=== PATIENT | male | born 1955 | race Caucasian/White ===

== ENCOUNTER 2018-02-24 10:52 | Inpatient (IN) ==
[2018-02-24 11:27] LABS: Basophils # 0.1 K/mm3 (0-0.2); Basophils % 0.4 % (0.1-2.0); Eosinophils # 0.2 K/mm3 (0.0-0.4); Eosinophils % 0.8 % (0.1-12.0); Hemoglobin 16.8 g/dL (14.1-18.0); Lymphocytes # 3.4 K/mm3 (0.7-4.5); Lymphocytes % 18.8 K/mm3 (10-50); Mean Corpuscular HGB Conc 32.9 g/dL (31.8-35.4); Mean Corpuscular Hemoglobin 30.7 pg (27.0-31.2); Mean Corpuscular Volume 93.4 fl (80-94); Mean Platelet Volume 8.3 fl (7.4-10.4); Monocytes # 1.5 K/mm3 (0.1-1.0); Monocytes % 8.3 % (1.7-9.3); Neutrophils # 12.8 K/mm3 (1.8-7.8); Neutrophils % 71.6 % (37.0-80.0); Platelet Count 327 K/mm3 (142-424); Red Blood Count 5.46 M/mm3 (4.60-6.20); Red Cell Distribution Width 13.1 % (11.5-17.5); White Blood Count 17.8 K/mm3 (4.8-10.8)
[2018-02-24 11:35] LABS: Albumin Level 3.5 gm/dL (3.4-5.0); Albumin/Globulin Ratio 0.9 (1.1-1.8); Anion Gap 14.4 mEq/L (5-15); Bilirubin,Total 0.6 mg/dL (0.2-1.0); Calcium 9.4 mg/dL (8.5-10.1); Globulin 4.1 gm/dl (1.3-3.2); Potassium 4.4 mmoL/L (3.5-5.1); Total Protein,Serum 7.6 gm/dL (6.4-8.2)
--- NOTE | 2018-02-24 12:12 | Emergency Department Note ---
ED Disposition Clinical Impression: Hypoxia RLL pneumonia Qualifiers: Pneumonia type: due to unspecified organism Qualified Code(s): J18.1 - Lobar pneumonia, unspecified organism Disposition: Admitted As Inpatient Condition on Discharge: Good Time of Disposition: 12:11 - Critical Care Critical Care Time: No Attestation: On 02/24/18, the high probability of a clinically significant, sudden or life threatening deterioration of the following system(s) required my full and direct attention, intervention and personal management. The time I documented below is in addition to time spent performing reported procedures but includes the following listed in this critical care notation. Medical Decision Making - Medical Records Medical records reviewed: Yes: I reviewed the patient's medical records. - Neo Inquiry Pt receiving controlled substance: No Vital Signs: 02/24/18 11:05 Temperature 97.8 F Temperature Source Oral Pulse Rate [Right Brachial] 81 Respiratory Rate 18 Blood Pressure [Right Arm] 117/84 Blood Pressure Mean [Right Arm] 95 Blood Pressure Source [Right Arm] Automatic Cuff Blood Pressure Position [Right Arm] Sitting 02 Sat by Pulse Oximetry 94 L Oxygen Delivery Method Room Air - Lab Data Lab results reviewed: Yes: I reviewed the patient's lab results. Lab Results 02/24/18 11:15: WBC 17.8 H, RBC 5.46, Hgb 16.8, Hct 51.0, MCV 93.4, MCH 30.7, MCHC 32.9, RDW 13.1, Plt Count 327, MPV 8.3, Neut % (Auto) 71.6, Lymph % (Auto) 18.8, [place] % (Auto) 8.3, Eos % (Auto) 0.8, Baso % (Auto) 0.4, Neut # (Auto) 12.8 H, Lymph # (Auto) 3.4, [place] # (Auto) 1.5 H, Eos # (Auto) 0.2, Baso # (Auto ) 0.1, Total Counted 100, Neutrophils % (Manual) 73, Lymphocytes % (Manual) 21, Monocytes % (Manual) 6, Platelet Estimate Normal, RBC Morphology Normal 02/24/18 11:15: Sodium 139, Potassium 4.4, Chloride 103, Carbon Dioxide 26, Anion Gap 14.4, BUN 15, Creatinine 0.81, Estimated Creat Clear 61, Estimated GFR 97, Est GFR ( Amer) 117, Glucose 95, Calcium 9.4, Total Bilirubin 0.6 , AST 24, ALT 55, Alkaline Phosphatase 101, Total Protein 7.6, Albumin 3.5, Globulin 4.1 H, Albumin/Globulin Ratio 0.9 L 02/24/18 12:20: Lactic Acid 0.8 Result diagrams: 02/24/18 11:15 02/24/18 11:15 Orders (Tests/Meds): ED MEDICATIONS Generic Name Dose Route Start Last Admin Trade Name Ajq PRN Reason Stop Dose Admin Albuterol/Ipratropium 3 ml 02/24/18 14:16 02/24/18 15:20 Duoneb 3ml Neb IH 03/26/18 14:15 Not Given Q4H VIANNEY Benzonatate 100 mg 02/24/18 14:16 Tessalon Perles 100mg Capsule PO 03/26/18 14:15 TID PRN cough Ceftriaxone Sodium 1 gm/ 50 mls @ 100 mls/hr 02/25/18 09:00 Sodium Chloride IV 03/11/18 08:59 Q24H VIANNEY Protocol Lactated Ringer's 1,000 mls @ 75 mls/hr 02/24/18 14:16 02/24/18 15:19 Lactated Ringer's 1000 Ml Bag IV 03/26/18 14:15 75 mls/hr .[id number] VIANNEY Administration Azithromycin 500 mg/ Sodium 250 mls @ 250 mls/hr 02/25/18 13:00 Chloride IV 03/10/18 12:59 Q24H VIANNEY Protocol Discontinued Medications Generic Name Dose Route Start Last Admin Trade Name Mel PRN Reason Stop Dose Admin Azithromycin 500 mg/ Sodium 250 mls @ 250 mls/hr 02/24/18 12:15 02/24/18 15: 20 Chloride IV 03/10/18 12:14 Not Given Q24H VIANNEY Protocol Ceftriaxone Sodium 1 gm/ 50 mls @ 100 mls/hr 02/24/18 12:15 02/24/18 13:31 Sodium Chloride IV 03/10/18 12:14 100 mls/hr Q24H VIANNEY Administration Protocol ORDERS Category Date Time Status Blood Culture Stat Micro 02/24/18 12:20 Received - Radiology Data #1 Image(s): Chest Image Reviewed: Yes I reviewed the patient's radiology results, Yes I reviewed the patient's radiology image, Yes I have reviewed radiologist's interpretation [address] [place] [id number] XRay Report Signed Patient: Jean Marie Perez MR#: [id number] : 1955 Acct:[id number] Age/Sex: 62 / M ADM Date: 02/24/18 Loc: ER Attending Dr: Ordering Physician: Doc Azar MD Date of Service: 02/24/18 Procedure(s): XR chest portable Accession Number(s): [id number] cc: Jose Antonio Melgar ; Doe Smith MD~ XR chest portable Ordering Physician: Doc Azar MD Patient Age: 62 years: Male HISTORY: ITS.REASON: CONGESTIONweakness. Headache. TECHNIQUE: AP upright chest 03-12 COMPARISON :PA and lateral chest from 11/04/2017 FINDINGS . The lungs are, hyperexpanded. Reflect underlying COPD Right lung appears clear. Left lung is suspect developing infiltrate at left lower lobe. Increased markings and density retrocardiac region medial left lung base The heart is normal in size. The althea and mediastinal structures appear satisfactory. No pleural effusion. No pneumothorax IMPRESSION======= 1. left lower lobe pneumonia suspect. Clinical correlation. \\ 2.COPD. Chronic changes Dictated By: Jose Antonio Melgar Signed By: <Electronically signed by Jose Antonio Melgar in OV> 02/24/18 1203 DD/ 1200 - CT Data CT Scan: Head (wo dye) Time Received: 12:[address] Reviewed: Yes: I have reviewed the patient's CT results, I discussed the CT results w/the radiologist, I have viewed the radiologist's interpretation Findings Narrative: [address] [place] [id number] Scan Report Signed Patient: Jean Marie Perez MR#: [id number] : 1955 Acct:[id number] Age/Sex: 62 / M ADM Date: 02/24/18 Loc: ER Attending Dr: Ordering Physician: Doc Azar MD Date of Service: 02/24/18 Procedure(s): CT head/brain wo con Accession Number(s): [id number] cc: Jose Antonio Melgar ; Doe Smith MD~ CT head/brain wo con Ordering Physician: Doc Azar MD Patient Age: 62 years: Male HISTORY: ITS.REASON: headache,weakness TECHNIQUE: Routine axial CT head. Bone and brain windows performed and reviewed COMPARISON : No previous studies for comparison FINDINGS . No hemorrhage. No mass. No subdural collection. The ventricles and basal cisterns appear satisfactory. No extra-axial nor subdural collection The skull is intact. Mild diffuse mucosal thickening ethmoid air cells and sphenoid sinus noted. Top of maxillary sinuses clear. Frontal sinuses overall clear with only borderline mucosal thickening near junction with ethmoid air cells At the mastoid air cells, middle air and IACs unremarkable. IMPRESSION: No acute intracranial findings. Brain within normal limits Dictated By: Jose Antonio Melgar Signed By: <Electronically signed by Jose Antonio Melgar in OV> 02/24/18 1159 DD/ 1156 - Physician Consults Physician Consulted: Dr Smith Time: 13:30 Reason -: Admission, Pt condition Comment/Response: Dr. Smith advise of patient's presentation findings, agreeable with hospitalization, aware of the fact the patient is hypoxic, and in distress at this time. Dr. Smith recommended IV antibiotics and to continue the neb treatments. General Adult HPI - General Chief complaint: Upper Respiratory Infection Stated complaint: weak nausea Time Seen by Provider: 02/24/18 11:25 Mode of Arrival: Ambulatory Source of Information: Patient, Spouse Limitations: No Limitations Description of Symptoms (Recalled from ER Triage Doc. by RN): cough,congestion for 3 weeks; feels poorly; afebrile - History of Present Illness HPI narrative: Patient presents with shortness of breath, productive cough, subjective fever for the past 3 weeks, worse. He has seen Dr. Smith in the office last Saturday he was started on "3 medications" (pt does not recall names). Upon arrival to the emergency room the patient's pulse oximetry is only 83% on room air, and he is in obvious respiratory distress, with audible wheezing. Recent travel, denies recent exposure to sick contacts. He is a heavy smoker, with know history of COPD. MD complaint: DYSPNEA Onset (ago): week(s) (3) Location: chest Radiation: non-radiation Severity: moderate Severity scale (1-10): 8 Consistency: constant Relieving factors: none Exacerbating factors: movement Associated symptoms: cough, diaphoresis, fever/chills, loss of appetite, malaise Treatments prior to arrival: none - Related Data Home Medications Medication Instructions Recorded Confirmed No Known Home Medications [No 02/24/18 02/24/18 Known Home Medications] Allergies Allergy/AdvReac Type Severity Reaction Status Date / Time No Known Allergies Allergy Verified 02/18/18 09:25 [facility] History I have reviewed the patient's past medical history: Yes Medical History: Reports:: Anxiety Other Surgeries: Yes: No Previous Surgery Amputation: No Fractures: Yes Comment: fx rt foot fx jaw, - Social History Educational Level: Completed High School Smoking Status: Never smoker Tobacco Type: cigarettes # Packs/Day (cigarettes): 20 Alcohol Intake: never Substance Use Type: marijuana Occupational Status: employed Housing: house Household Members: children - Psychiatric History Expresses thoughts of harming self/others: None Suicide Plan Description: No Plan Pschychiatric History:: Reports:: Anxiety Family Hx:: Unable to obtain ROS Obtained: Yes All systems reviewed & no additional complaints, Yes Systems reviewed as appropriate & no additional complaints - Constitutional Constitutional: Reports chills, Reports fatigue, Reports fever(s) - Respiratory Respiratory: Yes system reviewed and no additional complaints, except as docu, Yes as per HPI, Yes change in phlegm color, Yes chest congestion, Yes cough Physical Exam - General General appearance: alert, in distress (MODERATE) - Head Head exam: atraumatic, normocephalic, normal inspection - Neck Neck exam: Present: normal inspection, full ROM, trachea midline. Absent: meningismus, lymphadenopathy - Chest Chest inspection: Present: normal inspection, symmetric chest wall rise. Absent : tenderness - Respiratory Respiratory exam: Present: respiratory distress (MILD), wheezes (END EXPIRATORY) - Cardiovascular Cardiovascular exam: Present: regular rate, normal rhythm. Absent: JVD - Abdominal Exam Abdominal exam: Present: soft, normal bowel sounds. Absent: distention, tenderness, guarding - Extremities Exam Extremities exam: Present: normal inspection, full ROM, normal capillary refill. Absent: calf tenderness - Back Exam Back exam: Present: normal inspection. Absent: tenderness - Neurological Exam Neurological exam: Present: alert, oriented X3, CN II-XII intact, motor sensory deficit, reflexes normal - Expanded Neurological Exam Patient oriented to: Present: person, place, time Speech: Present: fluid speech Cranial nerves: Normal: EOM function (II, III, IV, ), facial sensation (V), facial palsy (VII), gag reflex (IX), spinal accessory function (XI), tongue deviation (XII) Cerebellar function: Normal: finger to nose, heel to coe Motor strength - LUE: 5/5 Motor strength - RUE: 5/5 Motor strength - LLE: 5/5 Motor strength - RLE: 5/5 Upper motor neuron exam: Absent bilaterally: jennifer neglect, pronator drift, Babinski sign, sensory extinction Sensory exam upper extremity: Normal: light touch, pin prick, temperature, 2 point discrimination Sensory exam lower extremity: Normal: light touch, pin prick, temperature, 2 point discrimination Coma scale eye opening: Spontaneous Coma scale motor response: Obeys commands Coma scale verbal response: Oriented Coma scale total: 15 - Psychiatric Psychiatric exam: Present: normal affect, normal mood - Skin Skin exam: Present: warm, dry, intact, normal color
[2018-02-24 12:26] LABS: Lymphocytes % 21 % (10-50); Monocytes % 6 % (2-9); Neutrophils % 73 % (42-76); RBC Morphology Normal; Total Cells Counted 100
--- NOTE | 2018-02-24 19:11 | History & Physical Report ---
*Admission Date: 02/24/18 *Chief complaint: sob *History of present illness: this wm who has copd was seen in pcp with sob and cough and places on abx and steroids and antitussive- he reports becoming progressive sob and dec po intake and was seen in the ed -atient presents with shortness of breath, productive cough, subjective fever for the past 3 weeks, worse. He has seen Dr. Smith in the office last Saturday he was started on "3 medications" (pt does not recall names). Upon arrival to the emergency room the patient's pulse oximetry is only 83% on room air, and he is in obvious respiratory distress, with audible wheezing. Recent travel, denies recent exposure to sick contacts. He is a heavy smoker, with know history of COPd [facility] History I have reviewed the patient's past medical history: Yes Medical History: Reports:: Anxiety Denies:: Cancer, Diabetes Mellitus Type 1, Diabetes Mellitus Type 2, Internal Pacemaker, MRSA Laterality Cases: Right: Other Other Surgeries: Yes: No Previous Surgery. No: Pacemaker Amputation: No Fractures: Yes - *Social History Educational Level: Completed High School Smoking Status: Never smoker Tobacco Type: cigarettes # Packs/Day (cigarettes): 20 Alcohol Intake: never Substance Use Type: marijuana Occupational Status: employed Housing: house Household Members: children - Psychiatric History Expresses thoughts of harming self/others: None Suicide Plan Description: No Plan Pschychiatric History:: Reports:: Anxiety *Family Hx:: Unable to obtain Review of Systems - Review of Systems Review of systems:: pertinent systems reviewed and negative unless documented below - Constitutional Denies fever(s) - Eyes Denies change in vision - ENT Denies sore throat - *Cardiovascular Denies chest pain at rest - *Respiratory Reports chest congestion, Reports cough, Denies coughing up blood - *Gastrointestinal Denies abdominal pain, Denies nausea, Denies vomiting - *Musculoskeletal Denies joint pain, Denies joint swelling - Integumentary/Breasts Denies rash - *Neurologic Denies dizziness, Denies seizure-like activity - Psychiatric Denies anxiety Meds Home Medications Medication Instructions Recorded Confirmed Type No Known Home Medications [No 02/24/18 02/24/18 History Known Home Medications] Allergies Allergy/AdvReac Type Severity Reaction Status Date / Time No Known Allergies Allergy Verified 02/18/18 09:25 Exam Vital signs and Labs for Last 24 Hours: Temp Pulse Resp BP Pulse Ox 98.1 F 94 H 20 132/76 97 02/24/18 14:54 02/24/18 16:57 02/24/18 15:54 02/24/18 15:54 02/24/18 16:57 I & O for Last 24 hours: Intake & Output 02/22/18 02/23/18 02/24/18 02/25/18 11:59 11:59 11:59 11:59 Intake Total 720 / 720 Balance 720 / 720 - Constitutional no acute distress - *Routine HEENT Exam Head: Present: normocephalic Eye: Present: EOMI, PERRL ENT: Present: mucous membranes dry - *Routine Neck Exam Present: full ROM. Absent: JVD - *Routine Respiratory Exam Present: rhonchi. Absent: respiratory distress - *Routine Cardiovascular Exam Present: RRR, murmur. Absent: rubs, S3, S4 - *Routine Abdominal Exam Present: soft - *Routine Extremities Exam Present: full ROM. Absent: calf tenderness - *Routine Skin Exam Present: intact - *Routine Neurological Exam Present: alert, oriented X3, CN II-XII intact - Routine Psychiatric Exam Present: normal affect Assessment and Plan (1) CAP (community acquired pneumonia) Current visit: Yes Status: Acute Qualifiers: Laterality: left Lung location: lower lobe of lung Qualified Code(s): J18.1 - Lobar pneumonia, unspecified organism Category: Medical Code(s): J18.9 - Pneumonia, unspecified organism (2) COPD exacerbation Current visit: Yes Status: Acute Category: Medical Code(s): J44.1 - Chronic obstructive pulmonary disease with (acute) exacerbation (3) Tobacco use disorder Current visit: Yes Status: Acute Category: Medical Code(s): F17.200 - Nicotine dependence, unspecified, uncomplicated
[2018-02-24 21:08] LABS: Coronavirus 229E Not Detected (NotDetected); Coronavirus NL63 Not Detected (NotDetected); Coronavirus OC43 Not Detected (NotDetected); Coronovirus HKU1,PCR Not Detected (NotDetected)
[2018-02-25 06:19] LABS: Basophils % 0.1 % (0.1-2.0); Eosinophils % 0.3 % (0.1-12.0); Hematocrit 47.6 % (42.0-52.0); Hemoglobin 15.3 g/dL (14.1-18.0); Lymphocytes % 10.1 K/mm3 (10-50); Mean Corpuscular HGB Conc 32.1 g/dL (31.8-35.4); Mean Corpuscular Hemoglobin 30.7 pg (27.0-31.2); Mean Corpuscular Volume 95.6 fl (80-94); Mean Platelet Volume 7.8 fl (7.4-10.4); Monocytes # 0.2 K/mm3 (0.1-1.0); Monocytes % 2.1 % (1.7-9.3); Neutrophils # 8.8 K/mm3 (1.8-7.8); Neutrophils % 87.3 % (37.0-80.0); Platelet Count 320 K/mm3 (142-424); Red Blood Count 4.98 M/mm3 (4.60-6.20); Red Cell Distribution Width 13.2 % (11.5-17.5); White Blood Count 10.1 K/mm3 (4.8-10.8)
[2018-02-25 07:05] LABS: Anion Gap 15.1 mEq/L (5-15); Potassium 5.1 mmoL/L (3.5-5.1)
--- NOTE | 2018-02-25 08:15 | Pharmacy Consult Notes ---
[facility] Pharmacy VTE Monitoring - Patient Demographics Admission date: 02/24/18 Report Date: 02/25/18 Time: 08:14 Allergies/Adverse Reactions: Patient Allergies No Known Allergies Allergy (Verified 02/18/18 09:25) Height: 1.85 m Weight: 66.706 kg Patient Problems: Current Active Problems RLL pneumonia (Acute) Hypoxia (Acute) CAP (community acquired pneumonia) (Acute) COPD (chronic obstructive pulmonary disease) (Acute) COPD exacerbation (Acute) Tobacco use disorder (Acute) - VTE Risk Labs: VTE Related Lab Results Hgb 15.3 g/dL (14.1-18.0) 02/25/18 06:10 Hct 47.6 % (42.0-52.0) 02/25/18 06:10 Plt Count 320 K/mm3 (142-424) 02/25/18 06:10 BUN 12 mg/dL (7-18) 02/25/18 06:10 Creatinine 0.77 mg/dL (0.70-1.30) 02/25/18 06:10 Estimated Creat Clear 72 mL/min (0-300) 02/25/18 06:10 Was VTE Risk Assessment Performed: Yes VTE Score: 2 VTE Risk Level: Very Low Risk - Prophylaxis VTE Prophylaxis Ordered?: Yes Types of VTE Prophylaxis: TEDS Knee High Location of Applied Device: Bilateral Lower Extremeties - VTE Diagnosis Confirmed Treatment or plan recommended: Continue Current Treatment
--- NOTE | 2018-02-25 12:32 | Discharge Summary ---
General - General Admission date: 02/24/18 Discharge date: 02/25/18 HPI HPI: this wm who has copd was seen in pcp with sob and cough and places on abx and steroids and antitussive- he reports becoming progressive sob and dec po intake and was seen in the ed -atient presents with shortness of breath, productive cough, subjective fever for the past 3 weeks, worse. He has seen Dr. Smith in the office last Estef[place] he was started on "3 medications" (pt does not recall names). Upon arrival to the emergency room the patient's pulse oximetry is only 83% on room air, and he is in obvious respiratory distress, with audible wheezing. Recent travel, denies recent exposure to sick contacts. He is a heavy smoker, with know history of COPd Hospital Course Hospital Course: pt has did well with ivf and abx with steroids and resp treatments - he is off o2 and simon room air - pt has flu b on resp panel and labs were improved Objective Vital signs: Temp Pulse Resp BP Pulse Ox 97.5 F L 74 20 101/58 96 02/25/18 11:45 02/25/18 11:45 02/25/18 11:45 02/25/18 11:45 02/25/18 11:45 no acute distress - *Routine HEENT Exam Head: Present: normocephalic Eye: Present: EOMI, PERRL ENT: Present: mucous membranes dry - *Routine Neck Exam Absent: JVD - *Routine Respiratory Exam Present: CTA bilaterally - *Routine Cardiovascular Exam Present: RRR. Absent: murmur, gallop, rubs - *Routine Abdominal Exam Present: soft - *Routine Extremities Exam Absent: calf tenderness - *Routine Skin Exam Present: lesions Comments: chronic lt scapular lesion - *Routine Neurological Exam Present: alert, oriented X3, CN II-XII intact - Routine Psychiatric Exam Present: normal affect Results Labs on day of discharge: Labs from last 24 hours 02/25/18 02/25/18 02/24/18 06:10 06:10 20:45 WBC 10.1 D RBC 4.98 Hgb 15.3 Hct 47.6 MCV 95.6 H MCH 30.7 MCHC 32.1 RDW 13.2 Plt Count 320 MPV 7.8 Neut % (Auto) 87.3 H Lymph % (Auto) 10.1 [facility] % (Auto) 2.1 Eos % (Auto) 0.3 Baso % (Auto) 0.1 Neut # (Auto) 8.8 H Lymph # (Auto) 1.0 [facility] # (Auto) 0.2 Eos # (Auto) 0.0 Baso # (Auto) 0.0 Sodium 141 Potassium 5.1 Chloride 104 Carbon Dioxide 27 Anion Gap 15.1 H BUN 12 Creatinine 0.77 Estimated Creat Clear 72 Estimated GFR 102 Est GFR ( Amer) 124 Glucose 162 H D Troponin I Chlamy pneumoniae PCR Not detected Adenovirus (PCR) Not detected B.parapertussis DNA PCR Not detected Coronavirus OC43 (PCR) Not detected Coronavirus HKU1 (PCR) Not detected Coronavirus 229E (PCR) Not detected Coronavirus NL63 (PCR) Not detected Human Metapneumovir PCR Not detected Influenza A (H1) PCR Not detected Influ A (H1N1/) PCR Not detected Influenza A (H3) PCR Not detected Influenza Type A (PCR) Not detected Influenza Type B (PCR) Detected A M. pneumoniae (PCR) Not detected Parainfluenza 1 (PCR) Not detected Parainfluenza 2 (PCR) Not detected Parainfluenza 3 (PCR) Not detected Parainfluenza 4 (PCR) Not detected RSV (PCR) Not detected Entero/Rhino (PCR) Not detected 02/24/18 19:21 WBC RBC Hgb Hct MCV MCH MCHC RDW Plt Count MPV Neut % (Auto) Lymph % (Auto) [facility] % (Auto) Eos % (Auto) Baso % (Auto) Neut # (Auto) Lymph # (Auto) [facility] # (Auto) Eos # (Auto) Baso # (Auto) Sodium Potassium Chloride Carbon Dioxide Anion Gap BUN Creatinine Estimated Creat Clear Estimated GFR Est GFR ( Amer) Glucose Troponin I < 0.02 Chlamy pneumoniae PCR Adenovirus (PCR) B.parapertussis DNA PCR Coronavirus OC43 (PCR) Coronavirus HKU1 (PCR) Coronavirus 229E (PCR) Coronavirus NL63 (PCR) Human Metapneumovir PCR Influenza A (H1) PCR Influ A (H1N1/) PCR Influenza A (H3) PCR Influenza Type A (PCR) Influenza Type B (PCR) M. pneumoniae (PCR) Parainfluenza 1 (PCR) Parainfluenza 2 (PCR) Parainfluenza 3 (PCR) Parainfluenza 4 (PCR) RSV (PCR) Entero/Rhino (PCR) Preliminary micro results at discharge 02/24/18 20:46 Sputum Culture - Preliminary Sputum - Expectorated Sputum DS: Diagnosis - Discharge Diagnosis (1) CAP (community acquired pneumonia) Status: Acute (2) COPD exacerbation Status: Acute (3) Tobacco use disorder Status: Acute (4) Flu Status: Acute (5) Skin lesion Status: Acute (6) Low body mass index (BMI) Status: Acute Discharge Plan - Patient Discharge Instructions ACTIVITY: Continue current activity DIET: continue same diet - Follow up Plan Disposition: Home, Self-Mcc Medications: Home Medications Medication Instructions Recorded Confirmed Type Benzonatate [Benzonatate 100mg 100 mg PO TIDP PRN 02/25/18 02/25/18 History cap] cephALEXin [Cephalexin 500mg Tab] 500 mg PO TID 02/25/18 02/25/18 History predniSONE [Prednisone 20mg 20 mg PO BID 02/25/18 02/25/18 History Tab] Prescriptions/Medication Reconciliation: New Benzonatate [Benzonatate 100mg cap] 100 mg PO TID PRN capsule PRN Reason: cough Ipratropium/Albuterol Sulfate [Duoneb 3mL neb] 3 ml IH Q4H ampul.neb Azithromycin [Zithromax 250mg tab] 250 mg PO DIRECTED #6 tab Oseltamivir Phosphate [Tamiflu 75mg Capsule] 75 mg PO BID #10 cap Continue Benzonatate [Benzonatate 100mg cap] 100 mg PO TIDP PRN PRN Reason: Cough predniSONE [Prednisone 20mg Tab] 20 mg PO BID Discontinued cephALEXin [Cephalexin 500mg Tab] 500 mg PO TID
[2018-02-25 14:15] LABS: Lymphocytes % 8 % (10-50); Monocytes % 2 % (2-9); Neutrophils % 90 % (42-76); Total Cells Counted 100
--- NOTE | 2018-02-25 20:06 | Cardiology Report ---
PROCEDURE: 2-D M-mode and color Doppler study INDICATIONS FOR THE TEST: Chest pain COPD+ Heart Murmur+ Tobacco Smoking+ Palpitations Fatigue Syncope Edema Hypertension Diabetes Mellitus Rheumatic Fever SOB+CRUM Obesity Hyperlipidemia Family History HD Additional History PATIENT INFORMATION HEIGHT: 73 WEIGHT:147 GENDER: Male B/P:132/76 2-D/M-MODE INTERPRETATION: 2-D MEASUREMENTS OBSERVED VALUES IN CMS Right Ventricular Dimension (RVDd) 2.0 Interventricular Septum (Thickness)(IVsd) 1.1 Left Ventricular Internal Dimensions(LVIDd) 5.1 Left Ventricular Posterior Wall (Thickness)(LVPWd) 0.8 Aortic Root 2.2 Aortic Cusp Separation 4.0 Left Atrial Dimensions (LAD) 4.0 2D 1. Left atrium is mildly enlarged, left ventricle is normal size, visually estimated ejection fraction 50% with no obvious regional wall motion abnormality, there is abnormal septal motion. 2. The right atrium and right ventricle are relatively normal size and function. 3. The aortic valve is minimally thickened and fibrosed. 4. The mitral and tricuspid valvular grossly normal. 5. The pulmonic valve is poorly visualized. 6. No significant pericardial effusion noted. DOPPLER INTERROGATION: Doppler interrogation of the aortic, mitral and tricuspid valvular presence of mild mitral and tricuspid regurgitation, tricuspid and jet velocity insufficient for calculation of the right ventricular systolic pressure, diastolic parameters are inconclusive. CONCLUSION: 1. Mildly enlarged left atrium, normal left ventricular size, visually estimated ejection fraction 5 50% with no obvious regional wall motion abnormality, there is abnormal septal motion. 2. Mild mitral and tricuspid regurgitation 3. No significant pericardial effusion noted.
[2018-02-27 14:57] VITALS: BP 112/70
== END 2018-02-25 13:50 | disposition home or self-care (01) ==
LOC: 2ND 10:52 → ER 10:52 → OBSVTOIN 14:22 → 2ND 14:23
PROVIDERS: ADMIT Emergency Medicine; ATTEND Emergency Medicine

== ENCOUNTER → 2018-04-16 09:39 | Outpatient (CLI) | payer MEDICAID, SELFPAY ==
[2018-04-16 10:28] LABS: Basophils % 0.3 % (0.1-2.0); Eosinophils # 0.1 K/mm3 (0.0-0.4); Eosinophils % 0.5 % (0.1-12.0); Hematocrit 40.8 % (42.0-52.0); Hemoglobin 13.7 g/dL (14.1-18.0); Lymphocytes # 1.9 K/mm3 (0.7-4.5); Lymphocytes % 14.7 K/mm3 (10-50); Mean Corpuscular HGB Conc 33.6 g/dL (31.8-35.4); Mean Corpuscular Volume 92.2 fl (80-94); Mean Platelet Volume 7.6 fl (7.4-10.4); Monocytes # 0.9 K/mm3 (0.1-1.0); Monocytes % 6.9 % (1.7-9.3); Neutrophils # 9.9 K/mm3 (1.8-7.8); Neutrophils % 77.6 % (37.0-80.0); Platelet Count 354 K/mm3 (142-424); Red Blood Count 4.43 M/mm3 (4.60-6.20); Red Cell Distribution Width 13.6 % (11.5-17.5); White Blood Count 12.7 K/mm3 (4.8-10.8)
[2018-04-16 11:40] LABS: Anion Gap 15.9 mEq/L (5-15); Blood Urea Nitrogen 13 mg/dL (7-18); Carbon Dioxide 27 mmol/L (21.0-32.0); Chloride 101 mmol/L (98-107); Creatinine,Serum 0.75 mg/dL (0.70-1.30); Estimated Glomerular Filt Rate 106 ml/min (>60); GFR (African American) 128 ML/MIN (>60); Glucose 87 mg/dL (74-106); Potassium 4.9 mmoL/L (3.5-5.1); Sodium 139 mmol/L (136-145)
== END ==
PROVIDERS: Visit Provider Surgery
DX: Z01.818 Encounter for other preprocedural examination (principal); L98.9 Disorder of the skin and subcutaneous tissue, unspecified
CPT/HCPCS: 36415; 80048; 85025; 93005

== ENCOUNTER → 2018-05-09 09:16 | Outpatient (CLI) | payer MEDICAID, SELFPAY ==
[2018-05-09 09:49] VITALS: PULSE 81; PULSE 83
== END ==
PROVIDERS: Family Provider Emergency Medicine; PCP Emergency Medicine; Visit Provider Emergency Medicine
DX: J44.9 Chronic obstructive pulmonary disease, unspecified (principal)
CPT/HCPCS: 94060; 94640

== ENCOUNTER → 2019-04-14 08:46 | Outpatient (CLI) | payer MEDICAID, SELFPAY ==
--- NOTE | 2019-04-14 08:53 | NVE_ITS ---
Venous Exam Indications: 729.5 Pain in limb. 729.5 Pain in limb. IMPRESSIONS 1. There is no evidence of significant Reflux. 2. No evidence of acute deep or superficial vein thrombosis involving the left lower extremity 3. Cystic nodule noted in the area of concern in the posterior thigh in the subcutaneous tissue. Left lower extremity venous duplex evaluation. Doppler flow study including spectral analysis, color and muñoz scale imaging. Location: Vascular laboratory. Patient status: Outpatient. Tables: Venous flow and imaging: + +-------+ + Location Overall Flow properties + +-------+ + Left common femoral Patent Normal phasicity; spontaneous; normal augmentation; compressible + +-------+ + Left saphenofemoral junction Patent Compressible + +-------+ + Left profunda femoral Patent Compressible + +-------+ + Left femoral Patent Normal phasicity; spontaneous; normal augmentation; compressible + +-------+ + Left greater saphenous Patent Normal phasicity; spontaneous; normal augmentation; compressible + +-------+ + Left popliteal Patent Normal phasicity; spontaneous; normal augmentation; compressible + +-------+ + Left posterior tibial Patent Compressible + +-------+ + Left peroneal Patent Compressible + +-------+ + Left gastrocnemius Patent Compressible + +-------+ + Left soleal Patent Compressible + +-------+ + (Report amended ) Electronically signed by: Sukh Sosa [id number]
== END ==
PROVIDERS: PCP Emergency Medicine; Visit Provider Emergency Medicine
DX: M79.605 Pain in left leg (principal)
CPT/HCPCS: 93971

== ENCOUNTER → 2019-06-10 15:14 | Outpatient (CLI) | payer MEDICAID, SELFPAY ==
--- NOTE | 2019-06-10 15:27 | CT_ITS ---
CT foot RT wo con INDICATION: Evaluate calcaneal fracture, pain following injury, deformity types of calcaneal fracture CT of calcaneal fractures ITS.REASON: Calcaneus fracture ORDERING PHYSICIAN: Yoana Mason MD PATIENT AGE: 64 years COMPARISON: None TECHNIQUE: Contrast Used: Oral Contrast: Axial images were obtained. Sagittal and coronal reformatted images are reviewed as well. All CT scans at the facility use one or more dose reduction, viz: automated exposure control, ma/kV adjustment per patient size (including targeted exams where dose is matched to indication, i.e. head), or iterative reconstruction technique. FINDINGS: There is a severely comminuted burst type fracture of the calcaneus with fractures extending from the posterior to the anterior surface of the calcaneus cephalad to caudad. Fracture lines extend into the subtalar joint and also involve the sustentaculum jazmyne. There is loss of Boehler's angle.. The anterior portion of the fracture does extend into the articular surface at the cuboid. There is extensive soft tissue swelling about the foot. There is an avulsion of the tip of the lateral malleolus nondisplaced IMPRESSION: Severely comminuted intra-articular calcaneal fracture as described above
--- NOTE | 2019-06-10 15:27 | CT_ITS ---
CT shoulder RT wo con HISTORY: Evaluate shoulder fracture, pain following injury, ITS.REASON: shoulder fracture ORDERING PHYSICIAN: Yoana Mason MD PATIENT AGE: 64 years Comparison: 06/10/2019 FINDINGS: Comminuted fracture involves the region of the greater tuberosity with mild displacement of the greater superiorly by approximately 14 mm. The fracture does not extend into the medial aspect of the humeral neck. There is no evidence of glenohumeral dislocation. Hypertrophic changes are present at the acromioclavicular joint. The glenoid fossa and scapula have an unremarkable appearance Incidental note is made of centrilobular emphysematous changes of the right lower lobe with some scarring. IMPRESSION: Comminuted fracture of the humerus at the greater tuberosity region with displacement of the greater tuberosity. The fracture does not appear to involve the humeral neck.
== END ==
PROVIDERS: PCP Emergency Medicine; Visit Provider Orthopaedic Surgery
DX: S42.91XA Fracture of right shoulder girdle, part unspecified, initial encounter for closed fracture (principal); S92.001A Unspecified fracture of right calcaneus, initial encounter for closed fracture
CPT/HCPCS: 73200; 73700

== ENCOUNTER → 2019-06-17 16:32 | Outpatient (CLI) | payer MEDICAID, SELFPAY ==
[2019-06-17 16:58] LABS: Basophils # 0.1 K/mm3 (0-0.2); Basophils % 0.3 % (0.1-2.0); Eosinophils # 0.2 K/mm3 (0.0-0.4); Eosinophils % 1.2 % (0.1-12.0); Hematocrit 42.2 % (42.0-52.0); Hemoglobin 13.3 g/dL (14.1-18.0); Lymphocytes % 11.1 % (10-50); Mean Corpuscular HGB Conc 31.5 g/dL (31.8-35.4); Mean Corpuscular Hemoglobin 29.9 pg (27.0-31.2); Mean Corpuscular Volume 95.1 fl (80-94); Monocytes # 0.9 K/mm3 (0.1-1.0); Monocytes % 4.8 % (1.7-9.3); Neutrophils # 14.8 K/mm3 (1.8-7.8); Neutrophils % 82.6 % (37.0-80.0); Platelet Count 421 K/mm3 (142-424); Red Blood Count 4.43 M/mm3 (4.60-6.20); Red Cell Distribution Width 12.9 % (11.5-17.5); White Blood Count 17.9 K/mm3 (4.8-10.8)
[2019-06-17 17:00] LABS: INR 0.91 (0.9-1.1); Prothrombin Time 9.5 seconds (9.4-11.8)
[2019-06-17 17:05] LABS: MANUAL DIFFERENTIAL MANUAL DIFFERENTIAL (MANUAL DIFF)
[2019-06-17 19:07] LABS: Eosinophils % 1 % (0-3); Lymphocytes % 9 % (10-50); Monocytes % 3 % (2-9); Neutrophils % 87 % (42-76); Total Cells Counted 100
[2019-06-17 19:08] LABS: Hypochromasia 1+; Platelet Estimate Normal
[2019-06-17 19:11] LABS: Alanine Aminotransferase 26 U/L (12-78); Albumin Level 3.5 gm/dL (3.4-5.0); Albumin/Globulin Ratio 1.1 (1.1-1.8); Alkaline Phosphatase 115 U/L (46-116); Anion Gap 15.7 mEq/L (5-15); Aspartate Amino Transferase 17 U/L (15-37); Bilirubin,Total 0.6 mg/dL (0.2-1.0); Blood Urea Nitrogen 13 mg/dL (7-18); Calcium 9.6 mg/dL (8.5-10.1); Carbon Dioxide 28 mmol/L (21.0-32.0); Chloride 100 mmol/L (98-107); Creatinine,Serum 0.81 mg/dL (0.70-1.30); Estimated Glomerular Filt Rate 96 ml/min (>60); GFR (African American) 116 ML/MIN (>60); Globulin 3.2 gm/dl (1.3-3.2); Glucose 150 mg/dL (74-106); Potassium 4.7 mmoL/L (3.5-5.1); Sodium 139 mmol/L (136-145); Total Protein,Serum 6.7 gm/dL (6.4-8.2)
== END ==
PROVIDERS: Visit Provider Orthopaedic Surgery
DX: S42.201A Unspecified fracture of upper end of right humerus, initial encounter for closed fracture (principal); J44.1 Chronic obstructive pulmonary disease with (acute) exacerbation
CPT/HCPCS: 36415; 80053; 85007; 85025; 85610

== ENCOUNTER → 2019-06-22 10:39 | Outpatient (CLI) | payer MEDICAID, SELFPAY ==
--- NOTE | 2019-06-22 10:52 | XR_ITS ---
XR chest 2V HISTORY: ITS.REASON: pre op, cough, smoker ORDERING PHYSICIAN: Yoana Mason MD PATIENT AGE: 64 years COMPARISON: 06/18/2019 FINDINGS: The cardiomediastinal silhouette and pulmonary vascularity are within normal limits. COPD. No lobar consolidation or collapse. There is increased density in the upper lung zones on both sides laterally probably related to overlying soft tissue attenuation. Postsurgical changes of the right humerus. IMPRESSION: COPD, no change with no acute finding
== END ==
PROVIDERS: Visit Provider Orthopaedic Surgery
DX: Z01.818 Encounter for other preprocedural examination (principal); S92.011A Displaced fracture of body of right calcaneus, initial encounter for closed fracture
CPT/HCPCS: 71046; 93005

== ENCOUNTER → 2019-07-01 12:37 | Outpatient (CLI) | payer OTHER, SELFPAY ==
--- NOTE | 2019-07-01 13:06 | XR_ITS ---
XR shoulder RT min 2V HISTORY: Follow-up surgery/ORIF ITS.REASON: S/p shoulder sx ORDERING PHYSICIAN: Yoana Mason MD PATIENT AGE: 64 years Comparison: 06/24/2019 FINDINGS: Lateral bone plate with multiple screws remain in place stabilizing the comminuted fracture at the base of the greater tuberosity with good alignment. Fracture lines are somewhat less apparent. IMPRESSION: Good alignment healing fracture status post ORIF proximal humerus
== END ==
PROVIDERS: PCP Emergency Medicine; Visit Provider Orthopaedic Surgery
DX: Z98.890 Other specified postprocedural states (principal); M25.511 Pain in right shoulder
CPT/HCPCS: 73030

== ENCOUNTER → 2019-07-17 13:38 | Outpatient (CLI) | payer OTHER, SELFPAY ==
--- NOTE | 2019-07-17 13:42 | XR_ITS ---
PROCEDURE: XR SHOULDER RT MIN 2V CLINICAL INDICATION: rt shoulder fx Follow-up fracture COMPARISON: from 07/01/2019 FINDINGS: Status post ORIF proximal humeral fracture with lateral sideplate and multiple screws. There is comminution of the greater tuberosity with some superior displacement of a fracture fragment which appears slightly greater displaced compared to the previous exam. Humeral head is in place. Osteoarthritic changes are present at the acromioclavicular joint. IMPRESSION: Status post ORIF right humeral neck fracture with some increase in superior displacement of a comminuted fragment of the greater tuberosity Dictated by: Sukh Sosa MD 07/17/2019 15:44 Signed by: <Electronically signed by Sukh Sosa MD in [place]> 07/17/2019 15:44
== END ==
PROVIDERS: PCP Emergency Medicine; Visit Provider Orthopaedic Surgery
DX: S42.201A Unspecified fracture of upper end of right humerus, initial encounter for closed fracture (principal)
CPT/HCPCS: 73030

== ENCOUNTER → 2019-07-23 12:49 | Outpatient (CLI) | payer OTHER, SELFPAY ==
--- NOTE | 2019-07-23 12:52 | XR_ITS ---
PROCEDURE: XR FOOT WT BEARING RT 3V CLINICAL INDICATION: post-op Follow-up surgery COMPARISON: Foot R from 06/10/2019 FINDINGS: Posterior splint is in place. Status post ORIF calcaneal fracture with good alignment. There is some loss of Boehler's angle. Status post fixation with a pen through the ununited fracture at the base of the proximal phalanx of the 5th digit with an additional oreilly through the proximal phalanx of the 4th digit. There is a splint in place. IMPRESSION: Postsurgical changes as described above Dictated by: Sukh Sosa MD 07/23/2019 13:32 Signed by: <Electronically signed by Sukh Sosa MD in [place]> 07/23/2019 13:32
--- NOTE | 2019-07-23 12:52 | XR_ITS ---
PROCEDURE: XR CALCANEUS RT MIN 2V CLINICAL INDICATION: post-op Follow-up surgery COMPARISON: No exams were available for comparison FINDINGS: S/p reduction internal fixation with bone plate placed over the lateral aspect of the calcaneus stabilized with multiple screws with an additional longitudinal screw from the posterior aspect of the calcaneus directed anteriorly and 1 from the lateral aspect directed medially. Fracture line extends into the anterior and posterior subtalar joint. There is depression of Boehler's angle. IMPRESSION: Status post ORIF comminuted calcaneal fracture as described above with good alignment Dictated by: Sukh Sosa MD 07/23/2019 13:55 Signed by: <Electronically signed by Sukh Sosa MD in [place]> 07/23/2019 13:55
== END ==
PROVIDERS: PCP Emergency Medicine; Visit Provider Podiatrist
DX: Z98.890 Other specified postprocedural states (principal)
CPT/HCPCS: 73630; 73650

== ENCOUNTER → 2019-08-13 09:13 | Outpatient (CLI) | payer OTHER, SELFPAY ==
--- NOTE | 2019-08-13 09:18 | XR_ITS ---
PROCEDURE: XR FOOT WT BEARING RT 3V CLINICAL INDICATION: post-op The COMPARISON: Foot R from 06/10/2019 XR FOOT WT BEARING RT 3V from 07/23/2019 FINDINGS: Stabilizing pans are once again noted in the mid and proximal phalanx of the 4th and 5th toes as previously described there remains non bony union involving the proximal aspect of the proximal phalanx of the 5th toe. There is mild diffuse osteopenia of the distal aspect of the 5th metatarsal. Prior ORIF of the calcaneus IMPRESSION: No change status post pin placement through the 4th and 5th toes and prior ORIF of the calcaneus. Dictated by: Sukh Sosa MD 08/13/2019 13:41 Electronically signed by Sukh Sosa MD in [place] 08/13/2019 13:41
== END ==
PROVIDERS: PCP Emergency Medicine; Visit Provider Podiatrist
DX: M79.671 Pain in right foot (principal); Z98.890 Other specified postprocedural states
CPT/HCPCS: 73630

== ENCOUNTER → 2019-08-17 13:50 | Outpatient (CLI) | payer OTHER, SELFPAY ==
--- NOTE | 2019-08-17 13:53 | XR_ITS ---
PROCEDURE: XR SHOULDER RT MIN 2V CLINICAL INDICATION: Rt shoulder pain Follow-up fracture COMPARISON: Shoulder R from 06/10/2019 XR SHOULDER RT MIN 2V from 07/17/2019 FINDINGS: Bone plate with multiple screws remains in place along the proximal lateral aspect of the humerus. Bony fragments are present at the greater tuberosity region. There appears to be slight increased fragmentation compared to the previous study. Subcortical lucency is also noted at the humeral head. There are osteoarthritic changes of the acromioclavicular joint. IMPRESSION: Status post ORIF right proximal humeral fracture with some increased fragmentation of the greater tuberosity fragment. Subcortical lucency noted in the humeral head raising the question of avascular necrosis Dictated by: Sukh Sosa MD 08/17/2019 14:20 Electronically signed by Sukh Sosa MD in [place] 08/17/2019 14:20
== END ==
PROVIDERS: PCP Emergency Medicine; Visit Provider Orthopaedic Surgery
DX: M25.511 Pain in right shoulder (principal)
CPT/HCPCS: 73030

== ENCOUNTER → 2019-08-27 14:08 | Outpatient (CLI) | payer OTHER, SELFPAY ==
--- NOTE | 2019-08-27 14:17 | XR_ITS ---
PROCEDURE: XR CALCANEUS RT MIN 2V CLINICAL INDICATION: post-op COMPARISON: 07/23/2019. FINDINGS: Splint device is no longer present. The calcaneal orthopedic metallic hardware appears stable. The appearance of the calcaneal fracture is unchanged. IMPRESSION: Splint device is no longer present. No other change. Dictated by: Jose Antonio Metz 08/27/2019 15:50 Electronically signed by Jose Antonio Metz in [place] 08/27/2019 15:50
--- NOTE | 2019-08-27 14:17 | XR_ITS ---
PROCEDURE: XR ANKLE WT BEARING RT MIN 3V CLINICAL INDICATION: post-op COMPARISON: No exams were available for comparison FINDINGS: The bone density, joint spaces and alignment are normal. There is no acute fracture. Again seen is the metallic orthopedic hardware involving calcaneus described on the calcaneus report. IMPRESSION: No acute findings. Dictated by: Jose Antonio Metz 08/27/2019 15:52 Electronically signed by Jose Antonio Metz in [place] 08/27/2019 15:52
== END ==
PROVIDERS: PCP Emergency Medicine; Visit Provider Podiatrist
DX: S92.011D Displaced fracture of body of right calcaneus, subsequent encounter for fracture with routine healing (principal); S92.501K Displaced unspecified fracture of right lesser toe(s), subsequent encounter for fracture with nonunion; Z98.890 Other specified postprocedural states
CPT/HCPCS: 73610; 73650

== ENCOUNTER → 2019-09-18 12:21 | Outpatient (CLI) | payer OTHER, SELFPAY ==
--- NOTE | 2019-09-18 12:34 | XR_ITS ---
PROCEDURE: XR HUMERUS RT CLINICAL INDICATION: Humerus FX FU Follow-up fracture COMPARISON: XR SHOULDER RT MIN 2V from 08/17/2019 FINDINGS: Status post ORIF proximal humeral fracture. Bone plate remains in place with good alignment. The greater tuberosity fragment is once again noted slightly displaced not significantly changed. No change subcortical lucency humeral head. IMPRESSION: No change status post ORIF proximal humeral fracture Dictated by: Sukh Sosa MD 09/18/2019 13:21 Electronically signed by Sukh Sosa MD in [place] 09/18/2019 13:21
== END ==
PROVIDERS: PCP Emergency Medicine; Visit Provider Orthopaedic Surgery
DX: S42.309A Unspecified fracture of shaft of humerus, unspecified arm, initial encounter for closed fracture (principal)
CPT/HCPCS: 73060

== ENCOUNTER → 2019-10-01 09:49 | Outpatient (CLI) | payer OTHER, SELFPAY ==
--- NOTE | 2019-10-01 09:55 | XR_ITS ---
PROCEDURE: XR CALCANEUS RT MIN 2V CLINICAL INDICATION: postop views Follow-up surgery/ORIF COMPARISON: XR CALCANEUS RT MIN 2V from 08/27/2019 FINDINGS: Status post ORIF comminuted calcaneal fracture with lateral bone plate with multiple screws along with a longitudinal screw extending posterior to anterior as previously described. The fracture lines appear somewhat less apparent suggesting healing. Subtalar joints are unremarkable. Fracture line is still visible in the central aspect of the calcaneus as seen on the PA view. There is some calcification superior to the posterior aspect of the calcaneus and may be related to some soft tissue calcification or small displaced fragment. There is flattening of Boehler's angle as before Other findings:None. IMPRESSION: Healing calcaneal fracture status post ORIF Dictated by: Sukh Sosa MD 10/01/2019 15:35 Electronically signed by Sukh Sosa MD in [place] 10/01/2019 15:35
--- NOTE | 2019-10-01 09:55 | XR_ITS ---
PROCEDURE: XR SHOULDER RT MIN 2V CLINICAL INDICATION: Shoulder pain Follow-up ORIF proximal humerus fracture COMPARISON: Shoulder R from 06/10/2019 XR SHOULDER RT MIN 2V from 07/17/2019 XR SHOULDER RT MIN 2V from 08/17/2019 FINDINGS: Status post ORIF humeral neck fracture with a lateral displaced fragment as before. There is good alignment of the main fracture fragments. Subarticular lucency once again noted at the humeral head and could be related to developing avascular necrosis. This appears slightly more prominent. IMPRESSION: Status post ORIF with good alignment of main fracture fragments with possible developing avascular necrosis of the humeral head Dictated by: Sukh Sosa MD 10/01/2019 15:37 Electronically signed by Sukh Sosa MD in [place] 10/01/2019 15:37
== END ==
PROVIDERS: PCP Emergency Medicine; Referring Provider Podiatrist; Visit Provider Orthopaedic Surgery
DX: M25.512 Pain in left shoulder (principal); Z98.890 Other specified postprocedural states
CPT/HCPCS: 73030; 73650

== ENCOUNTER 2019-10-01 10:00 | Outpatient (RCR) | payer OTHER, SELFPAY ==
--- NOTE | 2019-09-07 09:37 | HMH.PTOPEV ---
PT Outpatient Evaluation Rehab PT Outpatient Evaluation Start: 09/07/19 08:41 Freq: Status: Active Protocol: Document 09/07/19 09:13 SEBASTIANPERLA (Rec: 09/07/19 09:37 KAITLYNNQUANG [id number]) Electronically Signed By Vivek Delgado PT 09/07/19 09:13 Outpatient Therapy Subjective History Subjective History This is the initial Physical Therapy evaluation for Jean Marie Perez. Pt is a 64 y/o male referred to PT s/p R calcaneal and foot ORIF. Pt reports he was [place] and slipped and fell off roof. Pt reports drop of 14 feet. Pt rpeorts he hattered foot and R shoulder. Pt rperots he had 2 screws placed in shoulder and multiple plates and screws in R foot. Pt now reports to PT for ROM and progressive function. Chief Complaint Pain,Stiff,Swelling Symptom Type Ache,Throb,Sharp,Dull,Stabbing Symptoms Relieved By Rest/Positioning Symptoms Aggravated By Standing,Walking Prior Functional Limitations None Current Functional Limitations Standing,Recreation Activity, Walking,Stairs Symptom Description Constant but Variable Level of pain today (0-10) 1 Pain scale - at its best (0-10) 1 Pain scale - at its worst (0-10) 3 Ankle/Foot Eval Gait Observation General Gait Pattern Observation Antalgic Gait Assistive Device Ambulation Assistive Device Axillary Crutches ROM right Ankle/Foot Dorsiflexion w/Knee Extended 0 Active Range Motion (degrees) Ankle/Foot Plantar Flexion Active Range 40 of Motion (degrees) Ankle/Foot Eversion Active Range of 4 Motion (degrees) Ankle/Foot Inversion Active Range of 10 Motion (degrees) Ankle/Foot ROM Limitations Soft Tissue Tightness,Muscle Weakness MMT Ankle Dorsiflexion Strength Grade 3- Fair- Ankle Plantarflexion Strength Grade 3- Fair- Foot Eversion Strength Grade 3- Fair- Foot Inversion Strength Grade 3- Fair- Outpatient Therapy Assessment Impairments Problems/Impairmments Palpation Tenderness,Impaired Range of Motion,Impaired Strength,Impaired Walking, Impaired Standing,Impaired Stair Climbing,Impaired Incline Stepping,Impaired Stepping on Uneven Surface,
== END 2019-10-01 10:05 | disposition home or self-care (01) ==
LOC: PT 10:00
PROVIDERS: Visit Provider Podiatrist
DX: S92.001A Unspecified fracture of right calcaneus, initial encounter for closed fracture (principal); Z98.890 Other specified postprocedural states; S92.501K Displaced unspecified fracture of right lesser toe(s), subsequent encounter for fracture with nonunion
CPT/HCPCS: 97110; 97140; 97163

== ENCOUNTER 2019-10-01 11:00 | Outpatient (RCR) | payer OTHER, SELFPAY ==
--- NOTE | 2019-08-25 13:43 | HMH.OTOPEV ---
OT Inpatient Evaluation Rehab OT Outpatient Eval Start: 08/25/19 13:31 Freq: Status: Active Protocol: Document 08/25/19 13:32 TFRY (Rec: 08/25/19 13:43 TFRY [id number]) Electronically Signed By Yecenia Braun OT 08/25/19 13:32 Outpatient Therapy Subjective History Subjective History Patient seen this date for skilled occupational therapy evaluation. Patient referred to occupational therapy as patient is status post ORIF of right proximal humerus fracture. Patient reports that he fell off a house roof on February 25. He said he fell about 14 feet fracturing the proximal humerus and shattering his heel. Patient reports that he did not go to the ER untill the next day. Chief Complaint Pain,Stiff Symptom Type Ache,Sharp Symptoms Relieved By Rest/Positioning Symptoms Aggravated By Physical Activity Prior Functional Limitations None Current Functional Limitations Reaching,Lifting,Sleeping Symptom Description Activity Dependent Level of pain today (0-10) 0 Pain scale - at its best (0-10) 0 Pain scale - at its worst (0-10) 7 Shoulder/Elbow Eval Shoulder Objective Measurements Palpation Tenderness tenderness shoulder exam standard right Shoulder Palpation Findings Tenderness Shoulder ROM Right Shoulder ROM Limitations Pain Shoulder Abduction Active Range of 55 Motion (degrees) Shoulder Abduction Passive Range of 82 Motion (degrees) Shoulder Flexion Active Range of Motion 70 (degrees) Query Text: Shoulder Flexion Passive Range of Motion 110 (degrees) Shoulder External Rotation Active Range 20 of Motion (degrees) Shoulder External Rotation Passive Range 25 of Motion (degrees) Shoulder Internal Rotation Active Range WFL of Motion (degrees) Shoulder Internal Rotation Passive Range 40 of Motion (degrees) pain with active ROM shoulder exam right standard pain with passive ROM shoulder exam right standard decreased ROM shoulder exam standard right Shoulder MMT Shoulder Abduction Strength Grade 3- Fair- Shoulder Extension Strength Grade 3 Fair Shoulder Flexion Strength Grade 3- Fair- Shoulder Horizontal Abduction Strength 3- Fair- Grade Shoulder Horizontal Adduction Strength 3- Fair-
--- NOTE | 2019-09-24 09:48 | HMH.RHREAS ---
Rehab Reassessment Rehab OP Re-assessment Start: 09/24/19 08:50 Freq: Status: Active Protocol: Document 09/24/19 08:51 TFRY (Rec: 09/24/19 09:48 TFRY [id number]) Electronically Signed By Yecenia Braun OT 09/24/19 08:51 Rehab Re-assessment Subjective Subjective It is at least 65% better. Objective Objective Notes Patient seen this date foer skilled occupational therapy services. Reassessment of right shoulder: AROM: flexion - 0-135; Abduction - 0-105; int. rot - 0-10; ext. rot. - 0-50. PROM: flexion - 0-145; abduction - 0-140; int. rot. - 0-25; ext. rot. - 0-55. Right shoulder strength: flexion - 3+/5; abduction - 3+/5; int. rot. - 3+/5; ext. rot. - 3+/5 Assessment Assessment Notes ROM and strength are improving Patient goals met ROM and strength - STG's Goals Not Met AROM and strength Plan Plan Continue occupational therapy to improve AROM and strength Frequency of Therapy 2x per week Duration of therapy 5 weeks Time and Billing Re-Eval Time 5 Re-Eval Billing Units 0 PHYSICIAN CERTIFICATION: I certify the specified therapy services for Jean Marie Perez are required, authorized, and reviewed every 30 days.
== END 2019-10-01 11:05 | disposition home or self-care (01) ==
LOC: OT 11:00
PROVIDERS: Visit Provider Orthopaedic Surgery
DX: S42.294D Other nondisplaced fracture of upper end of right humerus, subsequent encounter for fracture with routine healing (principal); M79.601 Pain in right arm; M47.812 Spondylosis without myelopathy or radiculopathy, cervical region; R20.2 Paresthesia of skin
CPT/HCPCS: 97014; 97110; 97140; 97164; G0283

== ENCOUNTER → 2019-10-09 09:18 | Outpatient (CLI) | payer OTHER, SELFPAY ==
--- NOTE | 2019-10-09 09:28 | XR_ITS ---
PROCEDURE: XR CERVICAL SPINE 5V CLINICAL INDICATION: neck/shoulder pain COMPARISON: No exams were available for comparison FINDINGS: Multilevel degenerative disc disease is present at C3-C4 C4-C5 and C5-C6 most severe at C4-C5. The endplate osteophytes are present from C3 to see 6 again most severe at C4-C5 with mild retrolisthesis of C4 on C5 of 4 mm. No fracture or dislocation. No lytic or blastic change. Foraminal narrowing is present on the right at C4-C5 and C5-C6 and on the left at C4-C5 and C5-C6. Facet arthritic changes are present from C3-C7. Prior ORIF of the left mandibular condyle with a bone plate present with an additional bone plate along the right parasymphyseal region of the mandible IMPRESSION: 1. Multilevel cervical spondylosis with degenerative disc disease and facet arthritic change as detailed above. Dictated by: Sukh Sosa MD 10/09/2019 10:27 Electronically signed by Sukh Sosa MD in [place] 10/09/2019 10:27
== END ==
PROVIDERS: PCP Emergency Medicine; Visit Provider Orthopaedic Surgery
DX: M25.511 Pain in right shoulder (principal); M54.2 Cervicalgia
CPT/HCPCS: 72050

== ENCOUNTER → 2019-10-26 12:27 | Outpatient (POV) | payer OTHER, SELFPAY | PROVIDERS: Visit Provider Specialist | DX: M79.601 Pain in right arm (principal); R20.0 Anesthesia of skin | CPT/HCPCS: 95886; 95910 ==

== ENCOUNTER → 2019-11-09 10:47 | Outpatient (CLI) | payer OTHER, SELFPAY ==
--- NOTE | 2019-11-09 10:51 | XR_ITS ---
PROCEDURE: XR SHOULDER RT MIN 2V CLINICAL INDICATION: Rt arm pain Right shoulder pain, prior surgery COMPARISON: Shoulder R from 06/10/[address] shoulder RT wo con from 06/10/2019 from 06/24/2019 from 07/01/2019 XR SHOULDER RT MIN 2V from 07/17/2019 XR SHOULDER RT MIN 2V from 08/17/2019 XR SHOULDER RT MIN 2V from 10/01/2019 FINDINGS: Right lateral bone plate is present with multiple screws. No change in the mildly displaced comminuted fragment of the greater tuberosity. Glenohumeral joint shows mild osteoarthritic change. Mild osteoarthritic change noted also of the acromioclavicular joint. There is some ossification noted along the superior aspect of the humeral head possibly due heterotopic ossification or callus formation. Subcortical lucency once again noted at the humeral head area. IMPRESSION: Post surgical changes with good alignment with osteoarthritis with ossification noted along the humeral head which may be related to heterotopic ossification or callus formation with no change in the subcortical lucency of the humeral head Dictated by: Sukh Sosa MD 11/09/2019 11:28 Electronically signed by Sukh Sosa MD in [place] 11/09/2019 11:28
== END ==
PROVIDERS: PCP Emergency Medicine; Visit Provider Orthopaedic Surgery
DX: M25.511 Pain in right shoulder (principal)
CPT/HCPCS: 73030

== ENCOUNTER → 2019-11-10 15:03 | Outpatient (CLI) | payer OTHER, SELFPAY ==
--- NOTE | 2019-11-10 15:05 | XR_ITS ---
PROCEDURE: XR CALCANEUS RT MIN 2V CLINICAL INDICATION: post-op Follow-up surgery COMPARISON: XR CALCANEUS RT MIN 2V from 10/01/2019 FINDINGS: Status post calcaneal fracture with lateral bone plate and multiple screws. These are not significantly changed. Fracture lines are still visible the. Defect is noted along the posterior inferior aspect of the calcaneus as before. Other findings:None. IMPRESSION: No change status post ORIF calcaneal fracture Dictated by: Sukh Sosa MD 11/10/2019 15:30 Electronically signed by Sukh Sosa MD in [place] 11/10/2019 15:30
== END ==
PROVIDERS: PCP Emergency Medicine; Visit Provider Podiatrist
DX: S92.011D Displaced fracture of body of right calcaneus, subsequent encounter for fracture with routine healing (principal); Z98.890 Other specified postprocedural states
CPT/HCPCS: 73650

== ENCOUNTER 2019-11-13 08:53 | Outpatient (RCR) | payer OTHER, SELFPAY ==
--- NOTE | 2019-11-13 09:50 | HMH.OTOPEV ---
OT Inpatient Evaluation Rehab OT Outpatient Eval Start: 11/13/19 09:24 Freq: Status: Active Protocol: Document 11/13/19 09:25 TFRY (Rec: 11/13/19 09:50 TFRY [id number]) Electronically Signed By Yecenia Braun OT 11/13/19 09:25 Outpatient Therapy Subjective History Subjective History This is a 64 year old right handed male referred to occupational therapy. Patient is status post ORIF right humerus; scapular winging; right CTS and ulnar neuropathy . Chief Complaint Pain Symptom Type Ache,Dull Symptoms Relieved By Activity Symptoms Aggravated By Physical Activity Prior Functional Limitations None Current Functional Limitations Reaching,Lifting,Dressing, Sleeping Symptom Description Constant but Variable Level of pain today (0-10) 3 Pain scale - at its best (0-10) 3 Pain scale - at its worst (0-10) 9 Shoulder/Elbow Eval Shoulder Objective Measurements Palpation Tenderness tenderness over the bicipital tendon right shoulder exam standard Shoulder Palpation Findings Tenderness Shoulder ROM Right Shoulder Abduction Active Range of 90 Motion (degrees) Shoulder Abduction Passive Range of 105 Motion (degrees) Shoulder Flexion Active Range of Motion 90 (degrees) Query Text: Shoulder Flexion Passive Range of Motion 140 (degrees) Shoulder External Rotation Active Range 30 of Motion (degrees) Shoulder External Rotation Passive Range 45 of Motion (degrees) Shoulder Internal Rotation Active Range 20 of Motion (degrees) Shoulder Internal Rotation Passive Range 45 of Motion (degrees) pain with active ROM shoulder exam right standard pain with passive ROM shoulder exam right standard decreased ROM shoulder exam standard right Shoulder MMT Shoulder Abduction Strength Grade 3 Fair Shoulder Extension Strength Grade 3 Fair Shoulder Flexion Strength Grade 3 Fair Shoulder Horizontal Abduction Strength 3 Fair Grade Shoulder Horizontal Adduction Strength 3 Fair Grade Shoulder External Rotation Strength 3 Fair Grade Shoulder Internal Rotation Strength 3 Fair Grade Elbow Objective Measurements Wrist/Hand Eval Wrist Range of Motion Right Wrist ROM Reason Not Measured Within Functional Limits Wrist Manual Muscle Testing Right Wrist Strength Reason Not Measured
== END 2019-11-13 08:55 | disposition home or self-care (01) ==
LOC: OT 08:53
PROVIDERS: PCP Emergency Medicine; Visit Provider Orthopaedic Surgery
DX: S92.011D Displaced fracture of body of right calcaneus, subsequent encounter for fracture with routine healing (principal); S92.501K Displaced unspecified fracture of right lesser toe(s), subsequent encounter for fracture with nonunion
CPT/HCPCS: 97165

== ENCOUNTER → 2019-12-11 09:43 | Outpatient (CLI) | payer OTHER, SELFPAY ==
--- NOTE | 2019-12-11 09:44 | MR_ITS ---
PROCEDURE: MR CERVICAL SPINE WO CON CLINICAL INDICATION: Arm numbness Right upper extremity hand numbness, neck pain COMPARISON: XR CERVICAL SPINE 5V from 10/09/2019 TECHNIQUE: Standard multiplanar multiecho sequences are performed without contrast. 3-D MIP and myelographic images are also rendered and reviewed FINDINGS: There is slight reversal of the upper cervical lordosis. There are mild hypertrophic changes along the dorsal aspect of the a non toys process with narrowing of the canal at the craniocervical junction C2-C3: Degenerative disc disease. Mild bilateral foraminal narrowing from uncovertebral hypertrophy slightly greater on the left. C3-C4: Degenerate disc disease with bulging disc. The disc is eccentric toward the right with borderline canal stenosis and bilateral lateral recess and foraminal narrowing. Lateral recess narrowing is slightly greater on the right. C4-C5: Degenerate disc disease with bulging disc and endplate ridging/osteophyte/disc osteophyte complex slightly eccentric toward the left with canal stenosis and severe left lateral recess narrowing. There is severe bilateral foraminal narrowing. This is slightly greater on the left. C5-C6 degenerative disc disease endplate ridging with mild bulging disc with borderline narrowing of the canal and bilateral lateral recess and foraminal narrowing slightly greater on the left. C6-C7: Mild left foraminal narrowing from facet and uncovertebral hypertrophy. C7-T1: 3 mm anterolisthesis of C7. IMPRESSION: Abnormal MRI of the cervical spine. There is multilevel cervical spondylosis with degenerative disc disease, bulging disc, endplate ridging, disc osteophyte complexes along with facet and uncovertebral hypertrophy with canal stenosis and lateral recess and foraminal narrowing. Please see above for detailed description at each level Dictated by: Sukh Sosa MD 12/12/2019 10:22 Electronically signed by Sukh Sosa MD in [place] 12/12/2019 10:22
== END ==
PROVIDERS: PCP Emergency Medicine; Visit Provider Orthopaedic Surgery
DX: R20.0 Anesthesia of skin (principal); M79.621 Pain in right upper arm
CPT/HCPCS: 72141; 76376

== ENCOUNTER → 2020-05-19 14:34 | Outpatient (CLI) | payer MEDICARE, OTHER, SELFPAY ==
--- NOTE | 2020-05-19 14:39 | XR_ITS ---
PROCEDURE: XR CALCANEUS RT MIN 2V CLINICAL INDICATION: post-op COMPARISON: XR CALCANEUS RT MIN 2V from 11/10/2019 FINDINGS: There are no interval changes. Plate and screws traversing a depressed partially ununited, complex fracture of the majority of the calcaneus is again demonstrated. Soft tissues are intact. The are no new lesions. IMPRESSION: As above Dictated by: Kavon Gutierrez 05/19/2020 14:56 Electronically signed by Kavon Gutierrez in [place] 05/19/2020 14:56
--- NOTE | 2020-05-19 14:39 | XR_ITS ---
PROCEDURE: XR FOOT WT BEARING RT 3V CLINICAL INDICATION: post-op COMPARISON: Foot R from 06/10/2019 XR FOOT WT BEARING RT 3V from 07/23/2019 XR FOOT WT BEARING RT 3V from 08/13/2019 FINDINGS: There is a stable surgically reduced complex fracture of the calcaneus again demonstrated. The other bony structures of the foot are unremarkable for fracture, dislocation, or significant degenerate arthritic changes. Soft tissues are unremarkable. IMPRESSION: Stable postop changes of a remote calcaneal fracture Dictated by: Kavon Gutierrez 05/19/2020 14:58 Electronically signed by Kavon Gutierrez in [place] 05/19/2020 14:58
== END ==
PROVIDERS: PCP Emergency Medicine; Visit Provider Podiatrist
DX: Z98.890 Other specified postprocedural states (principal); M79.671 Pain in right foot
CPT/HCPCS: 73630; 73650

== ENCOUNTER → 2021-05-30 14:38 | Outpatient (CLI) | payer MEDICARE, OTHER, SELFPAY ==
[2021-05-30 14:58] LABS: Basophils # 0.1 K/mm3 (0-0.2); Basophils % 0.8 % (0.1-2.0); Eosinophils # 0.3 K/mm3 (0.0-0.4); Eosinophils % 2.7 % (0.1-12.0); Hematocrit 46.5 % (42.0-52.0); Hemoglobin 15.4 g/dL (14.1-18.0); Lymphocytes % 29.8 % (10-50); Mean Corpuscular Volume 93.7 fl (80-94); Mean Platelet Volume 9.1 fl (7.4-10.4); Monocytes # 0.7 K/mm3 (0.1-1.0); Neutrophils % 59.8 % (37.0-80.0); Platelet Count 298 K/mm3 (142-424); Red Blood Count 4.97 M/mm3 (4.60-6.20); Red Cell Distribution Width 14.1 % (11.5-17.5)
[2021-05-30 16:49] LABS: Alanine Aminotransferase 15 U/L (12-78); Albumin Level 4.6 g/dl (3.5-5.0); Alkaline Phosphatase 106 U/L (38-126); Anion Gap 16.2 mEq/L (5-15); Aspartate Amino Transferase 26 U/L (17-59); Bilirubin,Total 0.6 mg/dl (0.2-1.3); Blood Urea Nitrogen 13 mg/dl (9-20); Calcium 9.2 mg/dl (8.4-10.2); Carbon Dioxide 26 mmol/L (22.0-30.0); Chloride 104 mmol/L (98-107); Chol/HDL Ratio 2.7 (1-3.5); Cholesterol 204 mg/dl (140-200); Estimated Glomerular Filt Rate 75 ml/min (>60); GFR (African American) 90 ML/MIN (>60); Globulin 2.3 g/dL (1.3-3.2); Glucose 68 mg/dl (74-100); HDL Cholesterol 76 mg/dl (40-60); Potassium 4.2 mmoL/L (3.5-5.1); Sodium 142 mmol/L (136-145); Total Protein,Serum 6.9 g/dl (6.3-8.2); Triglycerides 60 mg/dl (30-150); VLDL Cholesterol 12 mg/dL (0-40)
[2021-05-30 18:23] LABS: Free T4 (Free Thyroxine) 1.01 ng/dl (0.78-2.19)
[2021-05-30 19:06] LABS: Direct LDL Cholesterol 106.96 mg/dL (100-129)
[2021-05-30 21:35] LABS: Prostate Specific Ag Screen 1.9 ng/ml (0.0-4.0); Thyroid Stimulating Hormone 2.18 uIU/mL (0.465-4.68)
== END ==
PROVIDERS: Visit Provider Emergency Medicine
DX: E78.5 Hyperlipidemia, unspecified (principal); R53.83 Other fatigue; Z12.5 Encounter for screening for malignant neoplasm of prostate
CPT/HCPCS: 80053; 80061; 84439; 84443; 85025; G0103

== ENCOUNTER → 2022-01-08 13:55 | Outpatient (CLI) | payer MEDICARE, OTHER, SELFPAY ==
--- NOTE | 2022-01-08 13:56 | CT_ITS ---
FINAL REPORT CLINICAL HISTORY: lung cancer screening, smoker for 30 years, 1/2 pack a day FINDINGS: CTDI vol (mGy): 2.[address] images of the chest were obtained using the low-dose protocol for screening. There is no evidence of mediastinal or hilar mass or adenopathy. No axillary mass or adenopathy is identified. On the lung window images, a 6 mm nodule is seen at the right lung apex on image #21 with a second nodule in the anterior right upper lobe measuring 4 mm on image #34. There is moderate emphysematous change and moderate scarring, right greater than left. IMPRESSION: Right lung nodules measuring up to 6 mm. Lung RADS category 3. Recommend 6 month followup low-dose CT for further evaluation. Reviewed, Interpreted and Dictated by Cordell Brown III, MD Transcribed by Angie Fowler Authenticated by Cordell Brown III, MD on 01/08/2022 04:36:34 PM [facility]
== END ==
PROVIDERS: PCP Emergency Medicine; Visit Provider Emergency Medicine
DX: Z87.891 Personal history of nicotine dependence (principal); Z12.2 Encounter for screening for malignant neoplasm of respiratory organs
CPT/HCPCS: 71271

== ENCOUNTER → 2022-04-20 16:01 | Outpatient (CLI) | payer MEDICARE, OTHER, SELFPAY ==
[2022-04-20 14:08] LABS: Basophils # 0.2 K/mm3 (0-0.2); Basophils % 1.9 % (0.1-2.0); Eosinophils # 0.2 K/mm3 (0.0-0.4); Eosinophils % 2.7 % (0.1-12.0); Hematocrit 47.1 % (42.0-52.0); Hemoglobin 15.8 g/dL (14.1-18.0); Lymphocytes # 2.8 K/mm3 (0.7-4.5); Lymphocytes % 34.4 % (10-50); Mean Corpuscular HGB Conc 33.5 g/dL (31.8-35.4); Mean Corpuscular Hemoglobin 33.6 pg (27.0-31.2); Mean Corpuscular Volume 100.5 fl (80-94); Mean Platelet Volume 9.3 fl (7.4-10.4); Monocytes # 0.7 K/mm3 (0.1-1.0); Monocytes % 8.1 % (1.7-9.3); Neutrophils # 4.3 K/mm3 (1.8-7.8); Neutrophils % 52.9 % (37.0-80.0); Platelet Count 245 K/mm3 (142-424); Red Blood Count 4.68 M/mm3 (4.60-6.20); Red Cell Distribution Width 13.5 % (11.5-17.5); White Blood Count 8.1 K/mm3 (4.8-10.8)
[2022-04-20 14:17] LABS: Alanine Aminotransferase 23 U/L (12-78); Albumin Level 4.5 g/dl (3.5-5.0); Alkaline Phosphatase 90 U/L (38-126); Anion Gap 12.4 mEq/L (5-15); Aspartate Amino Transferase 38 U/L (17-59); Bilirubin,Total 0.5 mg/dl (0.2-1.3); Blood Urea Nitrogen 18 mg/dl (9-20); Calcium 9.6 mg/dl (8.4-10.2); Carbon Dioxide 27 mmol/L (22.0-30.0); Chloride 105 mmol/L (98-107); Cholesterol 215 mg/dl (140-200); Estimated Glomerular Filt Rate 96 ml/min (>60); GFR (African American) 117 ML/MIN (>60); Globulin 2.3 g/dL (1.3-3.2); Glucose 77 mg/dl (74-100); HDL Cholesterol 72 mg/dl (40-60); Potassium 4.4 mmoL/L (3.5-5.1); Sodium 140 mmol/L (136-145); Total Protein,Serum 6.8 g/dl (6.3-8.2); Triglycerides 52 mg/dl (30-150); VLDL Cholesterol 10 mg/dL (0-40)
[2022-04-20 14:28] LABS: Direct LDL Cholesterol 120.53 mg/dL (100-129)
[2022-04-20 14:33] LABS: Free T4 (Free Thyroxine) 1.12 ng/dl (0.78-2.19)
[2022-04-20 14:34] LABS: 25-OH Vitamin D, Total 26.1 ng/mL (30-100)
[2022-04-20 14:48] LABS: Thyroid Stimulating Hormone 2.44 uIU/mL (0.465-4.68)
== END ==
PROVIDERS: Visit Provider Emergency Medicine
DX: R53.83 Other fatigue (principal); E78.5 Hyperlipidemia, unspecified; Z00.00 Encounter for general adult medical examination without abnormal findings; E55.9 Vitamin D deficiency, unspecified
CPT/HCPCS: 80053; 80061; 82306; 84439; 84443; 85025

== ENCOUNTER → 2022-08-02 13:38 | Outpatient (CLI) | payer MEDICARE, OTHER, SELFPAY | PROVIDERS: PCP Emergency Medicine; Visit Provider Nurse Practitioner Family | DX: F17.200 Nicotine dependence, unspecified, uncomplicated (principal); R00.1 Bradycardia, unspecified | CPT/HCPCS: 93270 ==

== ENCOUNTER → 2022-08-13 06:35 | Outpatient (CLI) | payer MEDICARE, OTHER, SELFPAY ==
--- NOTE | 2022-08-13 06:36 | NM_ITS ---
APPROVED REPORT Exam: Nuclear Stress Test Indication: SOB, HTN, High cholesterol, Former tobacco use Patient Location: Outpatient Stress Tech: Vianey Anthony [place] Tech:Ara Logan, ARRT, RT (R)(N) Ht: 6 ft 1 in Wt: 160 lbs HR: 70 bpm BP: 129/76 mmHg BSA: 1.96 m2 TID: 1.09 BMI: 21.1 History: SOB, HTN, High cholesterol, Former tobacco use Procedure: Patient exercised on Broderick protocol 8:59 minutes and sec, resting heart rate 70 bpm, resting blood pressure 129/76 mmHg, with exercise maximum heart rate achived was 140 bpm which is 92 % of the maximum predicted heart rate and blood pressure was 178/90 mmHg. Test was stopped due to SOB. Patient denied any complaint of chest pain. Patient has Good exercise capacity, achieved 10.1 METs of workload on treadmill, the blood pressure response to exercise was Adequate. Electrocardiogram Resting electrocardiogram shows sinus rhythm, with exercise there is less than 1.[address] segment depression noted from the baseline EKG. The EKG portion of the exercise Myoview is negative for ischemia. Cardiac Stress and Resting SPECT Images: Cardiac Stress and Resting SPECT images were obtained using technetium 99m Myoview 29.0 mCi stress and 9.75 mCi at rest. Gated SPECT analysis of segmental wall motion and calculation of the ejection fraction also done. Cardiac stress and rest SPECT images show uniform myocardial activity without segmental perfusion abnormality, computer derived ejection fraction is 43% however visually estimated ejection fraction 55% with no regional wall motion abnormality, right ventricle is normal size and contractility. Conclusion: 1. The EKG portion of the exercise Myoview is negative for ischemia. Patient has a good exercise capacity achieved 10.1 METs of workload on treadmill, the blood pressure response to exercise was adequate, there was no exercise-induced chest discomfort. 2. No scintigraphic evidence of reversible ischemia seen, computer derived ejection fraction is 43% however visually estimated ejection fraction 55% with no regional wall motion abnormality, right ventricle is normal size and contractility. 3. Likely normal exercise Myoview study. Electronically signed by : En Moss MD 08/13/2022 16:21:02
--- NOTE | 2022-08-13 06:36 | CT_ITS ---
FINAL REPORT TECHNIQUE: Axial imaging of the chest was obtained without contrast. Reformatted images were also obtained and reviewed.This study was performed with techniques to keep radiation doses as low as reasonably achievable, (ALARA). Individualized dose reduction technique using automated exposure control or adjustment of mA and/or kV according to the patient's size were employed. CLINICAL HISTORY: lung nodule COMPARISON: 01/08/2022 FINDINGS: There is no axillary adenopathy. There is no hilar or mediastinal mass or adenopathy. Heart size is normal. There is no pericardial or pleural effusion. Limited images of the upper abdomen are unremarkable. Previously noted nodule at the anterior right lung apex seen on image 55 of series 3 is stable. Small anterior right upper lobe nodule on image number 2, series 3 is also stable. There are moderate changes of centrilobular emphysema. Bilateral pleural and parenchymal scarring is again identified. There is centrilobular emphysema at the right lung apex. IMPRESSION: Stable right lung nodules. Reviewed, Interpreted and Dictated by Farhat Montez MD Transcribed by Angie Fowler Authenticated and . [facility]
--- NOTE | 2022-08-13 06:36 | CA_ITS ---
APPROVED REPORT Exam: Exercise Treadmill Technologist: Vianey James, Ht: 6 ft 1 in Wt: 143 lbs BSA: 1.87 m2 HR: 52 bpm BP: 130/70 mmHg Medical History Medications: Vitamin D3,,,,, Albuterol,,,,, BuPROPION,,,,, BREo Eliipta,,,,, Allergies: No known drug allergies Cardiac Risk Factors: FHX of CAD, Smoking Stress Test Details Test: Broderick HR Resting HR: 70 bpm Max Heart Rate (APMHR): 153.315257 bpm Max HR Achieved: 140 bpm Target HR (85% APMHR): 130.871333 bpm % of APMHR: 91.50 Recovery HR: 124 bpm BP Resting BP: 129/76 mmHg Max BP: 178/90 mmHg Recovery BP: 168.0/84.0 mmHg ECG Clinical Exercise duration: 08:59 min Highest Stage Achieved: Exercise capacity: 10.1 METs Stress ECG Conclusion PT HAD SOA, OCCASIONAL PVC, <1.5 ST CHANGES. Test Summary REST . . . . . . . Sitting REST . . . . . . . Standing REST 22:08 0.0 0.0 70 . 129/ 76 . . Stage 1 01:00 10.0 1.7 86 . . . . Stage 1 02:00 10.0 1.7 96 . . . . Stage 1 03:00 10.0 1.7 101 . 162/ 82 . . Stage 2 01:00 12.0 2.5 109 . . . . Stage 2 02:00 12.0 2.5 115 . . . . Stage 2 03:00 12.0 2.5 114 . 160/ 80 . . Stage 3 01:00 14.0 3.4 123 . . . . Stage 3 02:00 14.0 3.4 130 . . . . Stage 3 02:59 14.0 3.4 135 . 178/ 90 . Stop exercise at 08:59 RECOVERY 01:00 0.0 0.0 124 . 168/ 84 . . RECOVERY 02:00 0.0 0.0 95 . 168/ 84 . . RECOVERY 03:00 0.0 0.0 83 . 139/ 80 . . RECOVERY 03:41 0.0 0.0 80 . 123/ 72 . . Electronically signed by : En Moss MD 08/13/2022 16:16:30
--- NOTE | 2022-08-13 06:36 | CA_ITS ---
APPROVED REPORT EXAM: Comprehensive 2D, Doppler, and color-flow Echocardiogram Shrimp Picker: Michelle Parson RCS, RVS Ht: 6 ft 1 in Wt: 143lbs BSA: 1.87 BP: 161/72 mmHg Rhythm: occasional ectopy Indications: Abn EKG, Smoker,COPD,SOB, Bradycardia during surgery. Echo Enhancing Agent Comments: Extremely low acoustic windows with pectus excavatum 2D Dimensions LVOT 2.28 cm (M/F) 1.5-2.5 LA Volume 78.30 mL LA Volume Index 41.90 mL/m2 (M/F) 16-34 M-Mode Dimensions RVDd 2.43 cm (0.9-2.6) LA Diam 3.84 cm (1.9-4.0) LVDd 4.94 cm (3.5-5.7) Ao Diam 3.52 cm (2.0-3.7) LVDs 3.43 cm (3.5-5.7) IVSd 0.86 cm (0.6-1.1) PWd 0.82 cm (0.6-1.1) EF (Teich) 57.80% EPSs 0.29 cm FS 30.60% EDV (Teich) 115.00 mL TAPSE 2.17 (<1.7) ESV (Teich) 48.50 mL LV Diastology E Decel Time 173.00 (160-240 msec) E/A Ratio 1.89 MED E' 11.00 (< 7 cm/sec) MED A' 9.00 cm/s E'/MED E' Ratio 6.00 (>14) LAT E' 14.50 (<10 cm/sec) LAT A' 6.40 cm/s E/LAT E' Ratio 4.55 (>14) Aortic Valve LVOT Max 63.00 (70-110 cm/s) LVOT VTI 15.16 cm AoV Peak Shade. 93.00 (50-130 cm/s) AO Peak GR. 3.50 mmHg AO Mean GR. 1.70 (<5 mmHg) AO VTI 21.64 (18-25 cm) ALICE (VTI) 2.86 (2.5-4.5 cm2) Mitral Valve MV A Velocity 35.00 (40-130 cm/s) E/A Ratio 1.89 MV Decel. Time 173.00 (160-240 ms) MV Mean Gr. 1.10 (<2mmHg) Pulmonary Valve PV Peak Velocity 64.00 (50-150 cm/s) Tricuspid Valve TR P. Velocity 193.00 cm/s RAP Estimate 10.00 mmHg RVSP 25.00 mmHg Left Ventricle Left atrium is normal size, left ventricle is normal size, there is no concentric left ventricle hypertrophy, estimated ejection fraction is 55% with no regional wall motion abnormality, diastolic parameters are within normal range. Right Ventricle Right atrium and right ventricle are normal size and contractility. Aortic Valve Aortic valve is grossly normal there is no aortic stenosis or aortic insufficiency. Mitral Valve Mitral valve grossly normal, there is trace mitral regurgitation. Tricuspid Valve Tricuspid valve grossly normal, there is trace tricuspid regurgitation, tricuspid regurgitation jet velocity is inadequate for calculation of the right ventricular systolic pressure. Pulmonic Valve Pulmonic valve is poorly visualized. Great Vessels Aortic root is normal size. Inferior vena cava is poorly visualized. Pericardium No significant pericardial effusion noted. Conclusion 1. Normal left ventricular size preserved left ventricular systolic function, estimated ejection fraction 55% with no regional wall motion abnormality, diastolic parameters are within normal range. 2. Trace mitral and tricuspid regurgitation. 3. No significant pericardial effusion noted. 4. Inferior vena cava is poorly visualized. Electronically signed by : En Moss MD 08/13/2022 13:04:20
--- NOTE | 2022-08-13 08:45 | HMH.ITSHM ---
Current Home Medications as stated by this patient Jean Marie Perez SR or retention representative. []FLUTICASONE VITAMIN D3 BUPROPION ALBUTEROL
== END ==
PROVIDERS: PCP Emergency Medicine; Visit Provider Emergency Medicine
DX: F17.200 Nicotine dependence, unspecified, uncomplicated (principal); J42 Unspecified chronic bronchitis; R00.1 Bradycardia, unspecified; R06.00 Dyspnea, unspecified; R06.02 Shortness of breath
CPT/HCPCS: 71250; 78452; 93017; 93306; A9502

== ENCOUNTER 2023-03-05 13:00 | Emergency (ER) | payer MEDICARE, OTHER, SELFPAY ==
[2023-03-05 13:18] VITALS: BP 141/83; PULSE 106; RESP 17; TEMP 36.7; O2SAT 95; BMI 20.2
[2023-03-05 13:49] LABS: Apearance,Urine Clear (Clear); Bilirubin,Urine 1+ (Negative); Blood, Urine Negative (Negative); Color,Urine Yellow (Yellow); Glucose,Urine (UA) Negative (Negative); Ketones,Urine Negative (Negative); Protein,Urine 1+ (Negative); UTC Leukocyte Esterase,Urine Negative (Negative); UTC Nitrate,Urine Negative (Negative); Urobilinogen,Urine 1 EU/dl (0.2)
[2023-03-05 13:50] VITALS: BP 141/83; PULSE 106; RESP 20; TEMP 36.8; O2SAT 98; BMI 20.2
--- NOTE | 2023-03-05 13:55 | XR_ITS ---
FINAL REPORT TECHNIQUE: Chest PA & Lateral CLINICAL HISTORY: cough FINDINGS: 2 views of the chest were performed. The heart size is normal. The mediastinum is within normal limits. There is posterior lung base opacity seen on the lateral view. The lungs are hyperinflated consistent with COPD. There are no pleural effusions. There is no pneumothorax. The bony thorax appears intact. IMPRESSION: Posterior lung base opacity seen on the lateral view consistent with atelectasis or pneumonia. Reviewed, Interpreted and Dictated by Cordell Brown III, MD Transcribed by Kenney Fountain Authenticated and [facility]
--- NOTE | 2023-03-05 14:13 | EXP.UTC ---
Discharge Plan Disposition Patient Disposition: Home, Self-Care Prescriptions Prescriptions: New doxycycline hyclate 100 mg capsule 100 mg PO BID Qty: 14 0RF ondansetron 4 mg tablet,disintegrating 4 mg PO Q8H PRN (Reason: Nausea) Qty: 15 0RF No Action albuterol sulfate 90 mcg/actuation HFA aerosol inhaler 2 puff INHALATION QID Qty: 6.7 3RF Rx Instructions: administer with spacer bupropion HCl 75 mg tablet See Rx Instructions .ROUTE .COMPLEX Rx Instructions: TAKE 1 TABLET BY MOUTH DAILY FOR ANXIETY cholecalciferol (vitamin D3) 1,250 mcg (50,000 unit) capsule 1,250 mcg PO WEEKLY Rx Instructions: patient should get an OTC Vitamin D also,2,000 units to take every day,and pt also needs an OTC Fiber supplement fluticasone furoate-vilanterol [Breo Ellipta] 100-25 mcg/dose blister with device See Rx Instructions .ROUTE .COMPLEX Rx Instructions: INHALE 1 PUFF EVERY 24 HOURS FOR ALLERGY SYMPTOMS Referrals Follow up/Referrals: Doe Smith MD [Primary Care Provider] - See instructions Activity Restrictions/Add. Instructions Additional Instructions/Restrictions: Return for worsening difficulty breathing chest pain or any other concerns within the next 8 hours. Otherwise follow-up with your primary care physician within the next few days. Follow-up with urology at for this inguinal mass that was identified. CT scan was sent with you. Go to [email or web address] for setting up appointment Clinical Impressions Clinical Impression: Pneumonia Discharge ED Provider: Per Licea [facility] General Stated complaint: Back pain, vomiting Mode of Arrival: Ambulatory Source of Information: Patient Limitations: No Limitations Time Seen by Provider: 03/05/23 14:14 Description of Symptoms (Recalled from Triage Doc. by RN): nausea, stomach ache, vomit, and mid back pain HEENT Symptoms (Recalled from RN notes): No Resp Symptoms (Recalled from RN notes): No Skin Symptoms (Recalled from RN notes): No MS Symptoms (Recalled from RN notes): Yes (back pain) Functional Status (Recalled from RN notes): b/a History of Present Illness Provider Complaint: Patient states that he started feeling bad about a week ago has had N/V States that he has been laying around and not eating much but has been eating crackers and drinking water, States that he has been too weak to do much, States that he has felt off in his head at times and has had dizziness here and there and doesnt feel like himself States that he has been having pain in his mid back and when he coughs has grabbing like pain that comes through and from his back when he coughs into his stomach and feels shaky all over Related Data Home Medications Medication Instructions Recorded Confirmed bupropion HCl 75 mg tablet See Rx Instructions .Route 03/05/23 03/05/23 .COMPLEX . cholecalciferol (vitamin D3) 1,250 1,250 mcg PO WEEKLY Supplement 03/05/23 03/05/23 mcg (50,000 unit) capsule fluticasone furoate 100 See Rx Instructions .Route 03/05/23 03/05/23 mcg-vilanterol 25 mcg/dose .COMPLEX . inhalation powder (Breo Ellipta) Previous Rx's Medication Instructions Recorded albuterol sulfate 90 mcg/actuation 2 puff inhalation QID Asthma #6.7 01/15/23 aerosol inhaler grams doxycycline hyclate 100 mg capsule 100 mg PO BID #14 caps 03/05/23 ondansetron 4 mg disintegrating 4 mg PO Q8H PRN Nausea #15 tabs 03/05/23 tablet Allergies Allergy/AdvReac Type Severity Reaction Status Date / Time No Known Allergies Allergy Verified 03/05/23 13:51 Worker's Comp Is this a Worker's Comp case?: No [facility] Disclaimer: The information contained in this section may have been updated after the patient was seen, as this information can be updated by other users. Medical History Abnormal electrocardiogram [ECG] [EKG] Bradycardia [facility]
[2023-03-05 14:30] VITALS: BP 128/90; PULSE 90; O2SAT 98
--- NOTE | 2023-03-05 14:34 | CT_ITS ---
FINAL REPORT CLINICAL HISTORY: bilateral flank pain FINDINGS: CT OF THE ABDOMEN AND PELVIS WITH CONTRAST Axial CT images of the abdomen and pelvis were obtained after the administration of intravenous contrast. Coronal reformatted images were also obtained and reviewed.This study was performed with techniques to keep radiation doses as low as reasonably achievable (ALARA). Individualized dose reduction techniques using automated exposure control or adjustment of mA and/or kV according to the patient's size were employed. Abdomen: There are bilateral lower lobe opacities worrisome for pneumonia.. The heart is normal in size. There is a less than 1 cm cyst in the right hepatic lobe. The gallbladder is present. The spleen is unremarkable. There is mild bilateral adrenal gland enlargement favoring hyperplasia or adenomas. The pancreas has an unremarkable appearance. The kidneys are normal, without evidence of mass or hydronephrosis. The aorta is normal in caliber. There is no free fluid or adenopathy. There is moderate vascular calcification. Pelvis: The appendix is normal. There is diffuse bladder wall thickening that may be inflammatory. There is a 46 mm mass in the left inguinal canal. There is no evidence of bowel obstruction. IMPRESSION: 46 mm mass in the left inguinal canal could represent a mass versus undescended testicle. Bilateral lower lobe opacities worrisome for pneumonia. Reviewed, Interpreted and Dictated by Cordell Brown III, MD Transcribed by Kenney Fountain Authenticated and [facility]
[2023-03-05 14:39] LABS: Microscopic, Urine URINE MICROSCOPIC (MICROSCOPIC)
[2023-03-05 14:42] LABS: Appearance,Urine SL CLOUDY (Clear); Blood, Urine Negative (Negative); Color,Urine YELLOW (Yellow); Glucose,Urine (UA) Negative (Negative); Ketones,Urine TRACE (Negative); Leukocyte Esterase,Urine Negative (Negative); Nitrate,Urine Negative (Negative); Protein,Urine 2+ (Negative); Specific Gravity, Urine 1.025 (1.005-1.030)
[2023-03-05 14:50] LABS: Bilirubin,Urine 1+ (Negative)
[2023-03-05 14:55] LABS: Coronavirus 19, PCR Not Detected (NotDetected); Influenza A, PCR Not Detected (NotDetected); Influenza B, PCR Not Detected (NotDetected)
[2023-03-05 14:59] LABS: Basophils % 0.2 % (0.1-2.0); Eosinophils # 0.1 K/mm3 (0.0-0.4); Eosinophils % 0.5 % (0.1-12.0); Hematocrit 44.4 % (42.0-52.0); Hemoglobin 14.7 g/dL (14.1-18.0); Lymphocytes # 1.1 K/mm3 (0.7-4.5); Lymphocytes % 6.4 % (10-50); Mean Corpuscular HGB Conc 33.1 g/dL (31.8-35.4); Mean Corpuscular Hemoglobin 30.8 pg (27.0-31.2); Mean Platelet Volume 7.8 fl (7.4-10.4); Monocytes # 0.8 K/mm3 (0.1-1.0); Monocytes % 4.2 % (1.7-9.3); Neutrophils # 15.9 K/mm3 (1.8-7.8); Neutrophils % 88.7 % (37.0-80.0); Platelet Count 373 K/mm3 (142-424); Red Blood Count 4.78 M/mm3 (4.60-6.20); White Blood Count 17.9 K/mm3 (4.8-10.8)
[2023-03-05 15:00] VITALS: BP 138/99; PULSE 87; O2SAT 98
[2023-03-05 15:01] LABS: MANUAL DIFFERENTIAL MANUAL DIFFERENTIAL (MANUAL DIFF)
[2023-03-05 15:07] LABS: Bacteria,Urine Trace /lpf; Squamous Epithelial Cell,Urine Occasional #/hpf (0-5)
[2023-03-05 15:19] LABS: Chloride 102 mmol/L (98-107)
[2023-03-05 15:20] LABS: Potassium 4.1 mmoL/L (3.5-5.1); Sodium 137 mmol/L (136-145)
[2023-03-05 15:22] LABS: Alanine Aminotransferase 33 U/L (12-78); Alkaline Phosphatase 149 U/L (38-126); Anion Gap 14.1 mEq/L (5-15); Aspartate Amino Transferase 34 U/L (17-59); Bilirubin,Total 0.5 mg/dl (0.2-1.3); Blood Urea Nitrogen 14 mg/dl (9-20); Carbon Dioxide 25 mmol/L (22.0-30.0); Creatinine Clearance Estimated 71 mL/min (50-200); Estimated Glomerular Filt Rate 84 ml/min (>60); GFR (African American) 102 ML/MIN (>60)
[2023-03-05 15:23] LABS: Albumin/Globulin Ratio 1.3 (1.1-1.8); Calcium 9.1 mg/dl (8.4-10.2); Glucose 111 mg/dl (74-100); Lipase 42 U/L (23-300); Magnesium 1.9 mg/dl (1.6-2.3)
[2023-03-05 15:31] LABS: Lymphocytes % 11 % (10-50); Monocytes % 2 % (2-9); Neutrophils % 87 % (42-76); Total Cells Counted 100
[2023-03-05 15:32] LABS: Acanthocytes 1+; Ovalocytes 1+; Platelet Estimate Normal
[2023-03-05 15:45] LABS: Troponin I < 0.01 ng/ml (0.00-0.034)
[2023-03-05 16:00] VITALS: BP 115/73; PULSE 80; O2SAT 96
--- NOTE | 2023-03-05 17:21 | HMH.EDGENADL ---
Discharge Plan Disposition Patient Disposition: Home, Self-Care Prescriptions Prescriptions: New doxycycline hyclate 100 mg capsule 100 mg PO BID Qty: 14 0RF ondansetron 4 mg tablet,disintegrating 4 mg PO Q8H PRN (Reason: Nausea) Qty: 15 0RF No Action albuterol sulfate 90 mcg/actuation HFA aerosol inhaler 2 puff INHALATION QID Qty: 6.7 3RF Rx Instructions: administer with spacer bupropion HCl 75 mg tablet See Rx Instructions .ROUTE .COMPLEX Rx Instructions: TAKE 1 TABLET BY MOUTH DAILY FOR ANXIETY cholecalciferol (vitamin D3) 1,250 mcg (50,000 unit) capsule 1,250 mcg PO WEEKLY Rx Instructions: patient should get an OTC Vitamin D also,2,000 units to take every day,and pt also needs an OTC Fiber supplement fluticasone furoate-vilanterol [Breo Ellipta] 100-25 mcg/dose blister with device See Rx Instructions .ROUTE .COMPLEX Rx Instructions: INHALE 1 PUFF EVERY 24 HOURS FOR ALLERGY SYMPTOMS Referrals Follow up/Referrals: Doe Smith MD [Primary Care Provider] - See instructions Activity Restrictions/Add. Instructions Additional Instructions/Restrictions: Return for worsening difficulty breathing chest pain or any other concerns within the next 8 hours. Otherwise follow-up with your primary care physician within the next few days. Follow-up with urology at for this inguinal mass that was identified. CT scan was sent with you. Go to [email or web address] for setting up appointment Clinical Impressions Clinical Impression: Pneumonia Discharge ED Provider: Per Licea General Adult HPI General Stated complaint: Back pain, vomiting Time Seen by Provider: 03/05/23 14:14 Mode of Arrival: Ambulatory Source of Information: Patient Limitations: No Limitations Description of Symptoms (Recalled from ER Triage Doc. by RN): nausea, stomach ache, vomit, and mid back pain History of Present Illness HPI narrative: 67-year-old male with vomiting and cough for the last few days. He is abdominal pain and shortness of air. He was sent over from the urgent care side for evaluation of the emergency department Related Data Home Medications Medication Instructions Recorded Confirmed bupropion HCl 75 mg tablet See Rx Instructions .Route 03/05/23 03/05/23 .COMPLEX . cholecalciferol (vitamin D3) 1,250 1,250 mcg PO WEEKLY Supplement 03/05/23 03/05/23 mcg (50,000 unit) capsule fluticasone furoate 100 See Rx Instructions .Route 03/05/23 03/05/23 mcg-vilanterol 25 mcg/dose .COMPLEX . inhalation powder (Breo Ellipta) Previous Rx's Medication Instructions Recorded albuterol sulfate 90 mcg/actuation 2 puff inhalation QID Asthma #6.7 01/15/23 aerosol inhaler grams doxycycline hyclate 100 mg capsule 100 mg PO BID #14 caps 03/05/23 ondansetron 4 mg disintegrating 4 mg PO Q8H PRN Nausea #15 tabs 03/05/23 tablet Allergies Allergy/AdvReac Type Severity Reaction Status Date / Time No Known Allergies Allergy Verified 03/05/23 13:51 [facility] Disclaimer: The information contained in this section may have been updated after the patient was seen, as this information can be updated by other users. Medical History Abnormal electrocardiogram [ECG] [EKG] Bradycardia CAP (community acquired pneumonia) COPD (chronic obstructive pulmonary disease) COPD exacerbation Multifocal atrial tachycardia PAC (premature atrial contraction) Post-traumatic osteoarthritis of right foot Right bundle branch block RLL pneumonia SVT (supraventricular tachycardia) Tobacco use disorder Social History Smoking Status: Current every day smoker tobacco type: cigarettes packs per day: 1 second hand exposure: Yes alcohol intake: never counseling provided: none substance use type: unknown current occupational status: employed Travel in the last
[2023-03-05 17:43] VITALS: BP 112/78; PULSE 84; RESP 16; TEMP 36.8; O2SAT 96
[2023-03-05 18:19] LABS: Troponin I < 0.01 ng/ml (0.00-0.034)
== END 2023-03-05 17:45 | disposition home or self-care (01) ==
LOC: ER 13:19 → UTC 13:20 → ER 14:14
PROVIDERS: Nurse Practitioner; Emergency Provider Emergency Medicine; PCP Emergency Medicine
DX: J18.9 Pneumonia, unspecified organism (principal); R10.9 Unspecified abdominal pain; E86.0 Dehydration; F17.210 Nicotine dependence, cigarettes, uncomplicated
CPT/HCPCS: 71046; 74177; 80053; 81001; 81003; 83690; 83735; 84484; 85007; 85025; 87086; 96360; 96374; 99284; 99285; C9803; Q9967; U0003; U0005

== ENCOUNTER → 2023-03-22 13:30 | Outpatient (CLI) | payer MEDICARE, OTHER, SELFPAY ==
--- NOTE | 2023-03-22 13:34 | US_ITS ---
FINAL REPORT TECHNIQUE: Ultrasound images of the testicles were obtained bilaterally. Color Doppler images were obtained. CLINICAL HISTORY: poss hernia FINDINGS: The testicles are normal in size and echotexture bilaterally. Arterial flow is identified bilaterally. There are 2 epididymal cysts or spermatoceles on the right measuring up to 7 mm. There is an epididymal cyst or spermatocele on the left measuring up to 7 mm. There is a small echogenic focus in the right testicle of uncertain significance measuring 3 mm. IMPRESSION: Bilateral epididymal cysts or spermatoceles. Echogenic focus in the right testicle of uncertain significance. Consider follow-up ultrasound to evaluate for stability. Reviewed, Interpreted and Dictated by Cordell Brown III, MD Transcribed by Joanie Álvarez Authenticated and [facility]
--- NOTE | 2023-03-22 13:34 | US_ITS ---
FINAL REPORT CLINICAL HISTORY: Hernia FINDINGS: US EXTREMITY, NONVASCULAR Limited sonographic imaging of the groin was obtained. There are several lymph nodes in both inguinal regions, the largest on the left measures up to 2.2 cm, favor reactive. No hernia is identified. IMPRESSION: No inguinal hernias identified. If indicated, CT may be beneficial. Reviewed, Interpreted and Dictated by Cordell Brown III, MD Transcribed by Joanie Álvarez Authenticated and [facility]
== END ==
PROVIDERS: PCP Emergency Medicine; Visit Provider Surgery
DX: K46.9 Unspecified abdominal hernia without obstruction or gangrene (principal); K40.90 Unilateral inguinal hernia, without obstruction or gangrene, not specified as recurrent
CPT/HCPCS: 76870; 76882

== ENCOUNTER → 2023-03-26 11:25 | Outpatient (CLI) | payer MEDICARE, OTHER, SELFPAY ==
[2023-03-26 11:38] LABS: Microscopic, Urine URINE MICROSCOPIC (MICROSCOPIC)
[2023-03-26 12:30] LABS: Basophils % 0.5 % (0.1-2.0); Eosinophils # 0.3 K/mm3 (0.0-0.4); Eosinophils % 3.8 % (0.1-12.0); Hematocrit 47.1 % (42.0-52.0); Hemoglobin 14.8 g/dL (14.1-18.0); Lymphocytes # 3.2 K/mm3 (0.7-4.5); Lymphocytes % 35.4 % (10-50); Mean Corpuscular HGB Conc 31.5 g/dL (31.8-35.4); Mean Corpuscular Hemoglobin 30.2 pg (27.0-31.2); Mean Platelet Volume 7.7 fl (7.4-10.4); Monocytes # 0.5 K/mm3 (0.1-1.0); Neutrophils # 4.9 K/mm3 (1.8-7.8); Neutrophils % 54.3 % (37.0-80.0); Platelet Count 334 K/mm3 (142-424); Red Blood Count 4.91 M/mm3 (4.60-6.20); Red Cell Distribution Width 13.6 % (11.5-17.5); White Blood Count 9.1 K/mm3 (4.8-10.8)
[2023-03-26 12:39] LABS: Appearance,Urine CLEAR (Clear); Bilirubin,Urine Negative (Negative); Blood, Urine Negative (Negative); Color,Urine YELLOW (Yellow); Glucose,Urine (UA) Negative (Negative); Ketones,Urine Negative (Negative); Leukocyte Esterase,Urine Negative (Negative); Nitrate,Urine Negative (Negative); PH,Urine 7.5 (5.0-8.5); Protein,Urine Negative (Negative); Specific Gravity, Urine <= 1.005 (1.005-1.030); Urobilinogen,Urine 0.2 EU/dl (0.2)
[2023-03-26 12:51] LABS: Bacteria,Urine Trace /lpf; Squamous Epithelial Cell,Urine Occasional #/hpf (0-5)
== END ==
PROVIDERS: PCP Emergency Medicine; Visit Provider Surgery
DX: K40.20 Bilateral inguinal hernia, without obstruction or gangrene, not specified as recurrent (principal); K46.9 Unspecified abdominal hernia without obstruction or gangrene
CPT/HCPCS: 36415; 81001; 85025

== ENCOUNTER → 2023-06-11 14:05 | Outpatient (CLI) | payer MEDICARE, SELFPAY ==
[2023-06-11 14:35] LABS: Basophils % 0.2 % (0.1-2.0); Eosinophils # 0.2 K/mm3 (0.0-0.4); Hematocrit 45.5 % (42.0-52.0); Hemoglobin 14.3 g/dL (14.1-18.0); Lymphocytes # 2.2 K/mm3 (0.7-4.5); Lymphocytes % 26.4 % (10-50); Mean Corpuscular HGB Conc 31.4 g/dL (31.8-35.4); Mean Corpuscular Hemoglobin 29.7 pg (27.0-31.2); Mean Corpuscular Volume 94.4 fl (80-94); Mean Platelet Volume 7.6 fl (7.4-10.4); Monocytes # 0.5 K/mm3 (0.1-1.0); Monocytes % 5.9 % (1.7-9.3); Neutrophils # 5.6 K/mm3 (1.8-7.8); Neutrophils % 65.4 % (37.0-80.0); Platelet Count 267 K/mm3 (142-424); Red Blood Count 4.82 M/mm3 (4.60-6.20); Red Cell Distribution Width 13.9 % (11.5-17.5); White Blood Count 8.5 K/mm3 (4.8-10.8)
[2023-06-11 15:08] LABS: Alanine Aminotransferase 20 U/L (12-78); Albumin Level 4.5 g/dl (3.5-5.0); Alkaline Phosphatase 92 U/L (38-126); Anion Gap 9.5 mEq/L (5-15); Aspartate Amino Transferase 28 U/L (17-59); Bilirubin,Indirect 0.3 mg/dL (0.0-0.9); Bilirubin,Total 0.3 mg/dl (0.2-1.3); Bilirubin,Unconjugated 0.5 mg/dL (0.0-1.1); Blood Urea Nitrogen 14 mg/dl (9-20); Calcium 9.7 mg/dl (8.4-10.2); Carbon Dioxide 31 mmol/L (22.0-30.0); Chloride 107 mmol/L (98-107); Chol/HDL Ratio 2.7 (1-3.5); Cholesterol 209 mg/dl (140-200); Estimated Glomerular Filt Rate 84 ml/min (>60); GFR (African American) 102 ML/MIN (>60); Glucose 96 mg/dl (74-100); HDL Cholesterol 78 mg/dl (40-60); Potassium 4.5 mmoL/L (3.5-5.1); Sodium 143 mmol/L (136-145); Total Protein,Serum 6.8 g/dl (6.3-8.2); Triglycerides 74 mg/dl (30-150); VLDL Cholesterol 15 mg/dL (0-40)
[2023-06-11 15:19] LABS: Direct LDL Cholesterol 105.43 mg/dL (100-129)
[2023-06-11 15:24] LABS: Free T4 (Free Thyroxine) 1.15 ng/dl (0.78-2.19)
== END ==
PROVIDERS: PCP Emergency Medicine; Visit Provider Nurse Practitioner
DX: R06.00 Dyspnea, unspecified; R10.13 Epigastric pain; I45.10 Unspecified right bundle-branch block; I47.1 Supraventricular tachycardia; R00.1 Bradycardia, unspecified; F17.200 Nicotine dependence, unspecified, uncomplicated; R94.31 Abnormal electrocardiogram [ECG] [EKG]; E11.9 Type 2 diabetes mellitus without complications; I11.9 Hypertensive heart disease without heart failure; I63.9 Cerebral infarction, unspecified
CPT/HCPCS: 36415; 80048; 80061; 80076; 84439; 84443; 85025

== ENCOUNTER → 2023-07-10 13:28 | Outpatient (CLI) | payer MEDICARE, MEDICAID, SELFPAY ==
--- NOTE | 2023-07-10 13:28 | US_ITS ---
FINAL REPORT TECHNIQUE: Ultrasound images of the testicles were obtained bilaterally. Color Doppler images were obtained. CLINICAL HISTORY: Follow-up echogenic focus right testicle COMPARISON: 03/22/2023 FINDINGS: The right testicle measures 4.8 cm. There is a 3 mm echogenic focus in the right testicle which is stable and nonspecific. The left testicle measures 4.4 cm. The testicles are otherwise normal. There is normal blood flow. There is a 6 mm right epididymal cyst and a 9 mm left epididymal cyst. There is no evidence of torsion. IMPRESSION: Stable nonspecific 3 mm echogenic focus right testicle. Bilateral epididymal cysts. No evidence of torsion. Reviewed, Interpreted and Dictated by Cordell Brown III, MD Transcribed by Ely Darling Authenticated and . [facility]
== END ==
PROVIDERS: PCP Emergency Medicine; Visit Provider Surgery
DX: N50.811 Right testicular pain (principal); N50.812 Left testicular pain; R93.811 Abnormal radiologic findings on diagnostic imaging of right testicle; N50.89 Other specified disorders of the male genital organs
CPT/HCPCS: 76870

== ENCOUNTER 2024-09-30 10:30 | Outpatient (CLI) | payer MEDICARE, MEDICAID, SELFPAY ==
[2024-09-30 11:08] LABS: Basophils # 0.1 K/mm3 (0-0.2); Basophils % 0.8 % (0.1-2.0); Eosinophils # 0.2 K/mm3 (0.0-0.4); Eosinophils % 1.7 % (0.1-12.0); Hematocrit 46.7 % (42.0-52.0); Hemoglobin 15.4 g/dL (14.1-18.0); Lymphocytes # 1.9 K/mm3 (0.7-4.5); Lymphocytes % 17.2 % (10-50); Mean Corpuscular HGB Conc 32.9 g/dL (31.8-35.4); Mean Corpuscular Hemoglobin 31.5 pg (27.0-31.2); Mean Corpuscular Volume 95.6 fl (80-94); Mean Platelet Volume 7.9 fl (7.4-10.4); Monocytes # 0.9 K/mm3 (0.1-1.0); Monocytes % 8.4 % (1.7-9.3); Neutrophils # 7.8 K/mm3 (1.8-7.8); Platelet Count 239 K/mm3 (142-424); Red Blood Count 4.88 M/mm3 (4.60-6.20); Red Cell Distribution Width 13.4 % (11.5-17.5); White Blood Count 10.8 K/mm3 (4.8-10.8)
[2024-09-30 11:39] LABS: Alanine Aminotransferase 18 U/L (12-78); Albumin Level 4.8 g/dl (3.5-5.0); Albumin/Globulin Ratio 2.1 (1.1-1.8); Alkaline Phosphatase 98 U/L (38-126); Anion Gap 11.2 mEq/L (5-15); Aspartate Amino Transferase 31 U/L (17-59); Bilirubin,Direct 0.3 mg/dl (0.0-0.4); Bilirubin,Indirect 0.4 mg/dL (0.0-0.9); Bilirubin,Total 0.7 mg/dl (0.2-1.3); Bilirubin,Unconjugated 0.4 mg/dL (0.0-1.1); Blood Urea Nitrogen 12 mg/dl (9-20); Calcium 9.9 mg/dl (8.4-10.2); Carbon Dioxide 29 mmol/L (22.0-30.0); Chloride 106 mmol/L (98-107); Chol/HDL Ratio 2.9 (1-3.5); Cholesterol 241 mg/dl (140-200); Estimated Glomerular Filt Rate 84 ml/min (>60); GFR (African American) 101 ML/MIN (>60); Globulin 2.3 g/dL (1.3-3.2); Glucose 92 mg/dl (74-100); HDL Cholesterol 83 mg/dl (40-60); Magnesium 1.9 mg/dl (1.6-2.3); Potassium 4.2 mmoL/L (3.5-5.1); Sodium 142 mmol/L (136-145); Total Protein,Serum 7.1 g/dl (6.3-8.2); Triglycerides 85 mg/dl (30-150); VLDL Cholesterol 17 mg/dL (0-40)
[2024-09-30 11:50] LABS: Direct LDL Cholesterol 139.21 mg/dL (100-129)
[2024-09-30 11:55] LABS: Free Thyroxine Index 2.9 ug/dL (5.93-13.13); T4 (Thyroxine) 10.1 ug/dl (5.53-11.0); Triiodothryronine (T3) Uptake 29 % (23.5-40.5)
[2024-09-30 12:01] LABS: 25-OH Vitamin D, Total > 126 ng/mL (30-100)
[2024-09-30 12:09] LABS: Thyroid Stimulating Hormone 3.01 uIU/mL (0.465-4.68)
[2024-09-30 12:10] LABS: Prostate Specific Ag Screen 2.5 ng/ml (0.0-4.0)
== END 2024-09-30 23:59 | disposition home or self-care (01) ==
LOC: LAB 10:31
PROVIDERS: PCP Family Medicine; Visit Provider Family Medicine
DX: Z87.898 Personal history of other specified conditions (principal); J44.9 Chronic obstructive pulmonary disease, unspecified; Z00.00 Encounter for general adult medical examination without abnormal findings; E78.5 Hyperlipidemia, unspecified; E55.9 Vitamin D deficiency, unspecified; Z86.79 Personal history of other diseases of the circulatory system; Z12.5 Encounter for screening for malignant neoplasm of prostate; K40.20 Bilateral inguinal hernia, without obstruction or gangrene, not specified as recurrent
CPT/HCPCS: 36415; 80053; 80061; 80076; 82306; 83735; 84436; 84443; 84479; 85025; G0103

== ENCOUNTER 2025-04-01 09:18 | Outpatient (CLI) | payer MEDICARE, MEDICAID, SELFPAY ==
[2025-04-01 10:01] LABS: Basophils # 0.1 K/mm3 (0-0.2); Basophils % 0.6 % (0.1-2.0); Eosinophils # 0.3 Kmm3 (0.0-0.4); Eosinophils % 3.1 % (0.1-12.0); Hemoglobin 14.3 g/dL (14.1-18.0); Immature Granulocytes # 0.04 10^3uL; Immature Granulocytes % 0.4 %; Lymphocytes # 3.2 K/mm3 (0.7-4.5); Lymphocytes % 34.3 % (10-50); Mean Corpuscular HGB Conc 33.3 g/dL (31.8-35.4); Mean Corpuscular Hemoglobin 30.8 pg (27.0-31.2); Mean Corpuscular Volume 92.7 fl (80-94); Mean Platelet Volume 10.1 fl (7.4-10.4); Monocytes # 0.9 K/mm3 (0.1-1.0); Monocytes % 9.7 % (1.7-9.3); Neutrophils # 4.8 K/mm3 (1.8-7.8); Neutrophils % 51.9 % (37.0-80.0); Nucleated Red Blood Cells # 0 10^3/uL; Nucleated Red Blood Cells % 0 %; Platelet Count 261 K/mm3 (142-424); Red Blood Count 4.64 M/mm3 (4.60-6.20); Red Cell Distribution Width 13.2 % (11.5-17.5); Red Cell Distribution Width-SD 44.3 fL; White Blood Count 9.3 K/mm3 (4.8-10.8)
[2025-04-01 10:22] LABS: Alanine Aminotransferase 17 U/L (12-78); Albumin Level 4.3 g/dl (3.5-5.0); Alkaline Phosphatase 111 U/L (38-126); Aspartate Amino Transferase 28 U/L (17-59); Bilirubin,Total 0.7 mg/dl (0.2-1.3); Blood Urea Nitrogen 14 mg/dl (9-20); Calcium 9.7 mg/dl (8.4-10.2); Carbon Dioxide 29 mmol/L (22.0-30.0); Chloride 108 mmol/L (98-107); Cholesterol 138 mg/dl (140-200); Estimated Glomerular Filt Rate 96 ml/min (>60); GFR (African American) 116 ML/MIN (>60); Globulin 2.1 g/dL (1.3-3.2); Glucose 85 mg/dl (74-100); HDL Cholesterol 69 mg/dl (40-60); Sodium 139 mmol/L (136-145); Total Protein,Serum 6.4 g/dl (6.3-8.2); Triglycerides 56 mg/dl (30-150); VLDL Cholesterol 11 mg/dL (0-40)
[2025-04-01 10:33] LABS: Direct LDL Cholesterol 49.86 mg/dL (100-129)
[2025-04-01 10:38] LABS: Hemoglobin A1C 5.5 % (4.0-6.0)
[2025-04-01 10:40] LABS: Free Thyroxine Index 3.2 ug/dL (5.93-13.13); T4 (Thyroxine) 9.4 ug/dl (5.53-11.0); Triiodothryronine (T3) Uptake 34 % (23.5-40.5)
[2025-04-01 10:53] LABS: Thyroid Stimulating Hormone 1.83 uIU/mL (0.465-4.68)
== END 2025-04-01 23:59 | disposition home or self-care (01) ==
LOC: LAB 09:19
PROVIDERS: PCP Family Medicine; Visit Provider Family Medicine
DX: E55.9 Vitamin D deficiency, unspecified (principal); Z87.898 Personal history of other specified conditions; Z00.00 Encounter for general adult medical examination without abnormal findings; I10 Essential (primary) hypertension; K21.9 Gastro-esophageal reflux disease without esophagitis; J44.9 Chronic obstructive pulmonary disease, unspecified
CPT/HCPCS: 36415; 80053; 80061; 82306; 83036; 84436; 84443; 84479; 85025

== ENCOUNTER 2025-10-01 12:02 | Outpatient (CLI) | payer MEDICARE, OTHER, SELFPAY ==
[2025-10-01 14:54] LABS: Hematocrit 48.2 % (42.0-52.0); Hemoglobin 15.2 g/dL (14.1-18.0); Immature Granulocytes % 0.3 %; Mean Corpuscular HGB Conc 31.5 g/dL (31.8-35.4); Mean Corpuscular Hemoglobin 29.7 pg (27.0-31.2); Mean Corpuscular Volume 94.3 fl (80-94); Nucleated Red Blood Cells % 0 %; Platelet Count 217 K/mm3 (142-424); Red Blood Count 5.11 M/mm3 (4.60-6.20); Red Cell Distribution Width-SD 47.8 fL; White Blood Count 8.8 K/mm3 (4.8-10.8)
[2025-10-01 15:10] LABS: Alanine Aminotransferase 20 U/L (12-78); Albumin Level 4.8 g/dl (3.5-5.0); Albumin/Globulin Ratio 1.6 (1.1-1.8); Alkaline Phosphatase 126 U/L (38-126); Anion Gap 11.8 mEq/L (5-15); Aspartate Amino Transferase 32 U/L (17-59); Bilirubin,Total 0.7 mg/dl (0.2-1.3); Blood Urea Nitrogen 17 mg/dl (9-20); Calcium 10.4 mg/dl (8.4-10.2); Carbon Dioxide 31 mmol/L (22.0-30.0); Chloride 101 mmol/L (98-107); Cholesterol 177 mg/dl (140-200); Creatinine,Serum 0.90 mg/dl (0.66-1.25); Estimated Glomerular Filt Rate 83 ml/min (>60); GFR (African American) 101 ML/MIN (>60); Globulin 3.0 g/dL (1.3-3.2); Glucose 99 mg/dl (74-100); HDL Cholesterol 84 mg/dl (40-60); Potassium 4.8 mmoL/L (3.5-5.1); Sodium 139 mmol/L (136-145); Total Protein,Serum 7.8 g/dl (6.3-8.2); Triglycerides 70 mg/dl (30-150)
--- OUTSIDE RECORDS SUMMARY | 2025-10-04 12:04 | XMS_ITS | Clinical Summary ---
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 Active Vitamin D3 1.25 MG (00153 UT) capsule Take 50,000 Units by mouth 1 (one) time per week. 05/02/2022 Active Active Problems Problem Noted Date Diagnosed Date History of cigarette smoking 05/31/2022 Overview (05/31/2022): Quit 1 month ago. 1 ppd prior to that. 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 Spondylosis, cervical 01/01/2020 Stenosis, cervical spine 01/01/2020 Foraminal stenosis of cervical region 01/01/2020 Resolved Problems Problem Noted Date Diagnosed Date Resolved Date Numbness and tingling in right hand 01/01/2020 08/15/2025 Paresthesia of right arm 01/01/2020 Muscle weakness of extremity 01/01/2020 08/15/2025 Family History Medical History Relation Name Comments Diabetes Other 1 Hypertension Other 2 Other cancer Other 3 Anesthesia problems Neg Hx Malig Hyperthermia Neg Hx Relation Name Status Comments Other 1 Other 2 Other 3 Social History Tobacco Use Types Packs/Day Years Used Date Smoking Tobacco: Former Cigarettes Q uit: 05/05/2022 Smokeless Tobacco: Never Alcohol Use Standard Drinks/Week Comments No 0 (1 standard drink = 0.6 oz pur e alcohol) Sex and Gender Information Value Date Recorded Sex Assigned at Not on file Legal Sex Male 7:41 PM EDT Gender Identity Not on file Sexual Orientation Not on file Last Filed Vital Signs Vital Sign Reading Time Taken Comments Blood Pressure 144/81 08/01/2022 1:13 PM EDT Pulse 63 08/01/2022 1:13 PM EDT Temperature 36.6 C (97.8 F) 08/01/2022 1:13 PM EDT Respiratory Rate 10 07/09/2022 2:45 PM EDT Oxygen Saturation 98% 08/01/2022 1:13 PM EDT Inhaled Oxygen Concentration - - Weight 64.5 kg (142 lb 1.6 oz) 08/01/2022 1:13 P M EDT Height 185.4 cm (6' 1 ) 08/01/2022 1:13 PM EDT Body Mass Index 18.75 08/01/2022 1:13 PM EDT Plan of Treatment Health Maintenance Due Date Last Done Comments [facility]-Depression Screening 1955 [facility]-/Child/Adol SDOH Screenings 1955 [facility]- SDOH Screenings 1973 [facility]-Adult SDOH Screenings 1973 CT Colonography 2000 Colonoscopy 2000 FIT-DNA 2000 FIT 2000 FOBT 2000 Sigmoidoscopy 2000 [facility]-Colorectal Cancer Screening 2000 [facility]-Pneumococcal Vaccine: 50 + Years (1 of 1 - PCV) 2005 [facility]-Zoster Vaccines (1 of 2) 2005 [facility]-Abdominal Aortic Aneurys m (AAA) Screening 2020 XSI-QOEBO-49 Vaccine ( season) 2025 10/04/2021, 05/03/2021, 04/05/2021 [facility]-Influenza Vaccine (#1) 2025 [facility]-DTaP,Tdap,and Td Vaccine s (2 - Td or Tdap) 06/10/2029 06/10/2019 [facility]-RSV Vaccine: 60+ Years o r (1 - 1-dose 75+ series) 2030 HPV Vaccines Aged Out No longer eligi ble based on patient's age to complete this topic [facility]-HIB Vaccines Aged Out No longer e ligible based on patient's age to complete this topic [facility]-Hepatitis A Vaccines Aged Out No longer eligible based on patient's age to complete this topic [facility]-IPV Vaccines Aged Out No longer e ligible based on patient's age to complete this topic [facility]-Rotavirus Vaccines Aged Out No lo nger eligible based on patient's age to complete this topic Medical Devices Implanted Type 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
== END 2025-10-01 23:59 ==
LOC: LAB.DROPOF 10-04 12:02
PROVIDERS: PCP Student in an Organized Health Care Education/Training Program; Visit Provider Family Medicine
DX: E78.5 Hyperlipidemia, unspecified (principal); F32.A Depression, unspecified; J44.9 Chronic obstructive pulmonary disease, unspecified
CPT/HCPCS: 80053; 80061; 85025

== ENCOUNTER 2025-10-20 14:03 | Outpatient (CLI) | payer MEDICARE, SELFPAY ==
--- NOTE | 2025-10-20 14:30 | CT_ITS ---
FINAL REPORT TECHNIQUE: Thin section axial images were obtained through the lungs using a low-dose technique per lung cancer screening protocol. Reconstruction images were obtained using the axial data. This study was performed with techniques to keep radiation doses as low as reasonably achievable, (ALARA). Individualized dose reduction techniques using automated exposure control or adjustment of mA and/or kV according to the patient's size were employed. CLINICAL HISTORY: Lung cancer screening former smoker, 1 ppd x's 20-30 years, quit 1 yr ago, COPD, Exposed secondhand smoke COMPARISON: CT lung screen 01/08/[address] chest 08/13/2022 FINDINGS: CTDLvol: 2.90 DLP: 122.46 Former smoker, quit 1 year ago 20-30 pack year history Lungs: There is a new 4 mm left upper lobe nodule on series 4 image 20. There is a new nodular opacity in the left lower lobe. Distal to this opacity is somewhat wedge-shaped airspace disease. The nodule measures 13 x 14 mm on series 4 image 67. A subpleural right upper lobe nodule measuring 4 mm on series 4 image 32 is unchanged. Right greater than left apical pleural scar is stable. There are changes of emphysema. Lymph nodes: No thoracic lymphadenopathy. Mediastinum: Heart size is normal. There are prominent coronary artery calcifications. Pleura/pericardium: No pleural or pericardial effusion. Other: No acute abnormality in the upper abdomen. IMPRESSION: New nodular opacity in the left lower lobe with distal airspace disease with likely atelectasis. New 4 mm left upper lobe nodule. Stable right upper lobe nodule. Lung RADS: 4A Recommendation: Recommend PET CT or 3-month follow-up diagnostic chest CT. Reviewed, Interpreted and Dictated by Shira Cortez MD Transcribed by Josselin Edwards Authenticated and [facility]
== END 2025-10-20 23:59 | disposition home or self-care (01) ==
LOC: RAD 14:04
PROVIDERS: PCP Student in an Organized Health Care Education/Training Program; Visit Provider Family Medicine
DX: R91.8 Other nonspecific abnormal finding of lung field; J43.9 Emphysema, unspecified; Z87.891 Personal history of nicotine dependence; I25.10 Atherosclerotic heart disease of native coronary artery without angina pectoris; Z77.22 Contact with and (suspected) exposure to environmental tobacco smoke (acute) (chronic)
CPT/HCPCS: 71271